=== PATIENT | male | born 1985 | race African-American/Black ===

== ENCOUNTER 2019-08-14 16:35 | Emergency (ER) | payer SELFPAY ==
[2019-08-14] MEDS ORDERED: MECLIZINE HCL 12.5 MG TAB ONE (17:00)
[2019-08-14 17:19] LABS: Urine Blood TRACE (NEG); Urine Glucose NEGATIVE (NEG); Urine Protein NEGATIVE (NEG); Urine pH 6.5 (5.0-7.0)
--- NOTE | 2019-08-14 18:10 | RAD REPORT ---
EXAM DESCRIPTION: CT - Stone Protocol - 08/14/2019 5:59 pm CLINICAL HISTORY: Flank pain. KIDNEY STONES COMPARISON: <Comparisons> TECHNIQUE: Axial images were obtained without oral or IV contrast. Lack of contrast limits solid org an and vascular assessment. The [id number] spans the entirety of the system partially obscuring uppermost abdomen and lung bases. Coronal reformatted images were obtained and reviewed. All CT scans are performed using dose optimization technique as appropriate and may include automated exposure control or mA/KV adjustment according to patient size. FINDINGS: The lower lung carrizales are clear. Cholelithiasis. Imaged portions of the liver and spleen show no suspicious findings on non-contrast imaging. The panc reas and adrenal glands are normal. No pathologic lymphadenopathy in the abdomen or pelvis. No urinary tract stones or obstructive uropathy. No bowel obstruction, free air, free fluid or abscess. Normal appendix noted. No significant bony abnormality. IMPRESSION: No urinary tract stones or obstructive uropathy. Cholelithiasis.
--- NOTE | 2019-08-14 18:33 | EDPHYS ---
Physician Documentation [facility] Name: Dimas Valera Age: 34 yrs Sex: Male : 1985 Arrival Date: 08/14/2019 Time: 16:38 Bed 14 Private MD: ED Physician Omar Duran HPI: 08/14 17:13 This 34 yrs old Male presents to ER via EMS with complaints of Dizziness. snw 17:14 The patient presents with lightheadedness, sense of spinning. Onset: The snw symptoms/episode began/occurred suddenly, just prior to arrival. Context: occurred while the patient was standing. Modifying factors: The symptoms are alleviated by nothing. Associated signs and symptoms: Pertinent positives: nausea, vomiting. Severity of symptoms: At their worst the symptoms were moderate in the emergency department the symptoms have resolved. Patient's baseline: Neuro: alert and fully oriented, The patient has a previous history of deafness. The patient has not experienced similar symptoms in the past. It is unknown whether or not the patient has recently seen a physician. Historical: - Allergies: 16:43 No Known Allergies; jl7 - Home Meds: 16:43 None [Active]; jl7 - PMHx: 16:43 deaf; jl7 - PSHx: 16:43 None; jl7 - Immunization history:: Adult Immunizations unknown. - Social history:: Smoking status: unknown. - Ebola Screening: : No symptoms or risks identified at this time. ROS: 17:10 Constitutional: Negative for fever, chills, and weight loss, Eyes: Negative for injury, snw pain, redness, and discharge, ENT: Negative for injury, pain, and discharge, + deafness Neck: Negative for injury, pain, and swelling, Cardiovascular: Negative for chest pain, palpitations, and edema, Respiratory: Negative for shortness of breath, cough, wheezing, and pleuritic chest pain, Abdomen/GI: Negative for abdominal pain, diarrhea, and constipation, Positive for nausea, and vomited x 1 Back: Negative for injury and pain, : Negative for injury, bleeding, discharge, and swelling, MS/Extremity: Negative for injury and deformity, Skin: Negative for injury, rash, and discoloration. 17:10 Neuro: Positive for dizziness. Exam: 17:10 Constitutional: This is a well developed, well nourished patient who is awake, alert, snw and in no acute distress. Head/Face: Normocephalic, atraumatic. Eyes: Pupils equal round and reactive to light, extra-ocular motions intact. Lids and lashes normal. Conjunctiva and sclera are non-icteric and not injected. Cornea within normal limits. Periorbital areas with no swelling, redness, or edema. ENT: Nares patent. No nasal discharge, no septal abnormalities noted. Tympanic membranes are normal and external auditory canals are clear. Oropharynx with no redness, swelling, or masses, exudates, or evidence of obstruction, uvula midline. Mucous membranes moist. Neck: Trachea midline, no thyromegaly or masses palpated, and no cervical lymphadenopathy. Supple, full range of motion without nuchal rigidity, or vertebral point tenderness. No Meningismus. Chest/axilla: Normal chest wall appearance and motion. Nontender with no deformity. No lesions are appreciated. Cardiovascular: Regular rate and rhythm with a normal S1 and S2. No gallops, murmurs, or rubs. Normal PMI, no JVD. No pulse deficits. Respiratory: Lungs have equal breath sounds bilaterally, clear to auscultation and percussion. No rales, rhonchi or wheezes noted. No increased work of breathing, no retractions or nasal flaring. Abdomen/GI: Soft, non-tender, with normal bowel sounds. No distension or tympany. No guarding or rebound. No evidence of tenderness throughout. Back: No spinal tenderness. No costovertebral tenderness. Full range of motion. Skin: Warm, dry with normal turgor. Normal color with no rashes, no lesions, and no evidence of cellulitis. MS/ Extremity: Pulses equal, no cyanosis. Neurovascular intact. Full, normal range of motion. Neuro: Awake and alert, GCS 15, oriented to person, place, time, and situation. Cranial nerves II-XII grossly intact. Motor strength 5/5 in all extremities. Sensory grossly intact. Cerebellar exam normal. Normal gait. Psych: Awake, alert, with orientation to person, place and time. Behavior, mood, and affect are within normal limits. Vital Signs: 16:43 BP 130 / 93; Pulse 74; Resp 16 S; Temp 98.2(O); Pulse Ox 100% on R/A; Pain 0/10; jl7 17:39 BP 131 / 94 Supine; Pulse 61; Resp 16 S; Pulse Ox 100% on R/A; Pain 3/10; jl7 17:41 BP 144 / 104 Standing; Pulse 85; jl7 MDM: 16:43 Patient medically screened. snw 18:33 Data reviewed: vital signs, nurses notes. Data interpreted: Pulse oximetry: on room air snw is 100 %. Interpretation: normal. Counseling: I had a detailed discussion with the patient and/or guardian regarding: the historical points, exam findings, and any diagnostic results supporting the discharge/admit diagnosis, the presence of at least one elevated blood pressure reading (>120/80) during this emergency department visit, lab results, radiology results, the need for outpatient follow up, to return to the emergency department if symptoms worsen or persist or if there are any questions or concerns that arise at home. Special discussion: I have referred the patient to see his PCP for further evaluation of high blood pressure. Based on the history and exam findings, there is no indication for further emergent testing or inpatient evaluation. I discussed with the patient/guardian the need to see the ENT specialist for further evaluation of the symptoms. I discussed with the patient/guardian the need to see the primary care provider for further evaluation of the symptoms. 08/14 17:14 Order name: Urine Dipstick--Ancillary (enter results); Complete Time: 17:20 bd 08/14 17:43 Order name: CT Stone Protocol; Complete Time: 18:25 snw 08/14 16:49 Order name: Urine Dipstick-Ancillary (obtain specimen); Complete Time: 17:09 snw 08/14 16:49 Order name: EKG; Complete Time: 16:50 snw 08/14 16:49 Order name: EKG - Nurse/Tech; Complete Time: 17:09 snw 08/14 17:34 Order name: Orthostatics; Complete Time: 17:50 jl7 Administered Medications: 17:09 Drug: Meclizine 50 mg Route: PO; 7 17:34 Follow up: Response: No adverse reaction; Marked relief of symptoms jl7 Disposition: 08/14/19 18:33 Discharged to Home. Impression: Essential (primary) hypertension, Benign positional paroxysmal vertigo. - Condition is Stable. - Discharge Instructions: Benign Positional Vertigo, Hypertension, How to Take Your Blood Pressure, Fcoz-ly-Cakt, Amish Maneuver Self-Care, DASH Eating Plan, Rehydration, Adult, Managing Your Hypertension. - Prescriptions for promethazine 25 mg Oral Tablet - take 1 tablet by ORAL route every 6 hours As needed; 20 tablet. orphenadrine citrate 100 mg Oral Tablet Sustained Release - take 1 tablet by ORAL route 2 times per day As needed; 20 tablet. - Medication Reconciliation Form, Thank You Letter, Antibiotic Education, Prescription Opioid Use form. - Follow up: Private Physician; When: 1 week; Reason: Recheck today's complaints, Continuance of care, Re-evaluation by your physician. Follow up: Emergency Department; When: As needed; Reason: Worsening of condition. Addendum: 08/16/2019 07:44 Co-signature as Attending Physician, Omar Duran MD I agree with the assessment and k dr plan of care. Signatures: Dispatcher [employer] EDOmar Sullivan MD MD [facility] Cristina Post, TABLE WORKER PACKAGER-C TABLE WORKER PACKAGER-Csnw Katy Jernigan RN RN jl7 Corrections: (The following items were deleted from the chart) 08/14 19:01 18:33 08/14/2019 18:33 Discharged to Home. Impression: Essential (primary) jl7 hypertension; Benign positional paroxysmal vertigo. Condition is Stable. Discharge Instructions: Benign Positional Vertigo, Hypertension, How to Take Your Blood Pressure, [id number], Amish Maneuver Self-Care, DASH Eating Plan, Rehydration, Adult, Managing Your Hypertension. Prescriptions for promethazine 25 mg Oral Tablet - take 1 tablet by ORAL route every 6 hours As needed; 20 tablet. and Forms are Medication Reconciliation Form, Thank You Letter, Antibiotic Education, Prescription Opioid Use. Follow up: Private Physician; When: 1 week; Reason: Recheck today's complaints, Continuance of care, Re-evaluation by your physician. Follow up: Emergency Department; When: As needed; Reason: Worsening of condition. snw
--- NOTE | 2019-08-14 18:33 | ER ---
Nurse's Notes [facility] Name: Dimas Valera Age: 34 yrs Sex: Male : 1985 Arrival Date: 08/14/2019 Time: 16:38 Bed 14 Private MD: Diagnosis: Essential (primary) hypertension;Benign positional paroxysmal vertigo Presentation: 08/14 16:39 Presenting complaint: EMS states: Pt at home and stood up, felt palpitations and jl7 dizziness. Pt c/o nausea on arrival, nausea and palpitations resolved, pt reports intermittent dizziness on standing. Pt is deaf but can read lips pretty well. Transition of care: patient was not received from another setting of care. Onset of symptoms was August 14, 2019. Risk Assessment: Do you want to hurt yourself or someone else? Patient reports no desire to harm self or others. Initial Sepsis Screen: Does the patient meet any 2 criteria? No. Patient's initial sepsis screen is negative. Does the patient have a suspected source of infection? No. Patient's initial sepsis screen is negative. Care prior to arrival: IV initiated. 20 GA, in the right antecubital area. 16:39 Method Of Arrival: EMS: [facility] jl7 16:39 Acuity: BEBO 3 jl7 Triage Assessment: 16:43 General: Appears in no apparent distress. uncomfortable, Behavior is calm, cooperative, jl7 appropriate for age. Pain: Denies pain. Neuro: Level of Consciousness is awake, alert, obeys commands, Oriented to person, place, time, situation, Moves all extremities. Full function Gait is steady, Facial symmetry appears normal. Cardiovascular: Patient's skin is warm and dry. Respiratory: Airway is patent Respiratory effort is even, unlabored, Respiratory pattern is regular, symmetrical. Derm: Skin is dry, Skin is normal, Skin temperature is warm. Historical: - Allergies: 16:43 No Known Allergies; jl7 - Home Meds: 16:43 None [Active]; jl7 - PMHx: 16:43 deaf; jl7 - PSHx: 16:43 None; jl7 - Immunization history:: Adult Immunizations unknown. - Social history:: Smoking status: unknown. - Ebola Screening: : No symptoms or risks identified at this time. Screenin:08 Abuse screen: Denies threats or abuse. Denies injuries from another. Nutritional jl7 screening: No deficits noted. Tuberculosis screening: No symptoms or risk factors identified. Fall Risk IV access (20 points). Total Crook Fall Scale indicates No Risk (0-24 pts). Assessment: 17:08 General: See triage assessment. jl7 17:34 Reassessment: Pt reports marked relief of symptoms, ERP notified. VO for orthostatics. jl7 17:45 Reassessment: Pt has had to urgently urinate 3 times since he has been here, reports jl7 intermittent throbbing in the left flank since yesterday, ERP notified, CT scan ordered. Vital Signs: 16:43 BP 130 / 93; Pulse 74; Resp 16 S; Temp 98.2(O); Pulse Ox 100% on R/A; Pain 0/10; jl7 17:39 BP 131 / 94 Supine; Pulse 61; Resp 16 S; Pulse Ox 100% on R/A; Pain 3/10; jl7 17:41 BP 144 / 104 Standing; Pulse 85; jl7 ED Course: 16:38 Patient arrived in ED. jl7 16:42 Triage completed. jl7 16:43 Cristina Post FNP-C [facility]. snw 16:43 Omar Duran MD is Attending Physician. snw 16:43 Arm band placed on right wrist. jl7 16:53 Katy Jernigan, RN is Primary Nurse. jl7 17:08 Patient has correct armband on for positive identification. Bed in low position. Call jl7 light in reach. Side rails up X 1. surveillance system monitor on. Pulse ox on. NIBP on. 17:08 Urine collected:. jl7 17:21 EKG done, by medical office technologist. reviewed by Cristina HAGER. sm3 17:59 CT Stone Protocol In Process Unspecified. EDMS 19:00 No provider procedures requiring assistance completed. IV discontinued, intact, jl7 bleeding controlled, No redness/swelling at site. Pressure dressing applied. Administered Medications: 17:09 Drug: Meclizine 50 mg Route: PO; jl7 17:34 Follow up: Response: No adverse reaction; Marked relief of symptoms jl7 Outcome: 18:33 Discharge ordered by . snw 19:00 Discharged to home ambulatory. jl7 19:00 Condition: stable 19:00 Discharge instructions given to patient, family, Instructed on discharge instructions, follow up and referral plans. medication usage, Demonstrated understanding of instructions, follow-up care, medications, Prescriptions given X 2. 19:01 Patient left the ED. jl7 Signatures: Dispatcher [employer] EDCristina Gaviria, TANNING WHEEL FILLER-C TANNING WHEEL FILLER-Jose Guadalupew Katy Jernigan RN RN jl7 Jackeline Woo [facility]
[2019-08-14 19:07] VITALS: TEMP 98.2; O2SAT 100
[2019-08-14 19:09] VITALS: BP 144/104
--- NOTE | 2019-08-15 05:15 | EKG ---
Test Date: 2019-08-14 Test Time: 16:59:36 Proof Press Operator: BLAISE MEASUREMENT RESULTS: Intervals: Rate: 69 LA: 140 QRSD: 78 QT: 368 QTc: 394 [place]: P: 75 LA: 140 QRS: 103 T: 28 INTERPRETIVE STATEMENTS: Normal sinus rhythm Rightward axis Nonspecific ST abnormality Abnormal ECG No previous ECG available for comparison Electronically Signed On 08-15-19 05:14:00 CDT by Chencho Wild
== END 2019-08-14 19:01 | disposition home or self-care (01) ==
LOC: ER 16:35
DX: I10 Essential (primary) hypertension (principal); H81.10 Benign paroxysmal vertigo, unspecified ear
CPT/HCPCS: 74176; 76377; 81003; 93005; 99284; J8597

== ENCOUNTER 2021-05-21 15:57 | Emergency (ER) | payer OTHER ==
--- NOTE | 2021-05-21 18:48 | EDPHYS ---
Physician Documentation [facility] Name: Diams Valera Age: 36 yrs Sex: Male : 1985 Arrival Date: 05/21/2021 Time: 16:05 Bed 16 Private MD: ED Physician Erinn Arora HPI: 05/21 18:50 This 36 yrs old Black Male presents to ER via Ambulatory with complaints of Blood kb Pressure Problem. 18:50 Severity of symptoms: At their worst the symptoms were moderate in the emergency kb department the symptoms are unchanged. The patient has not experienced similar symptoms in the past. The patient has not recently seen a physician. 18:50 Onset: The symptoms/episode began/occurred at an unknown time. kb 18:51 Patient reports he has had problems with a dry mouth and tongue for quite some time. kb Came in to get that checked out as well as blood pressure and blood sugar. States hypertension and diabetes runs in the family who is concerned that he was developing those. Also reports grinding his teeth at night and wants to know why that occurs.. Historical: - Allergies: 17:23 No Known Allergies; kg - Home Meds: 17:23 None [Active]; kg - PMHx: 17:23 Deaf; Bipolar disorder; kg - PSHx: 17:23 None; kg - Immunization history:: Adult Immunizations up to date, Client reports having NOT received the Covid vaccine. Adult Immunizations not up to date, Client reports receiving the 2nd dose of the Covid vaccine, Date received: February 2021. - Social history:: Smoking status: Patient reports the use of cigarette tobacco products, smokes one-half pack cigarettes per day, Patient uses alcohol, occasionally. ROS: 18:49 Constitutional: Negative for fever, chills, and weight loss. kb 18:49 ENT: Positive for dry mouth. 18:49 All other systems are negative. Exam: 18:50 Constitutional: This is a well developed, well nourished patient who is awake, alert, kb and in no acute distress. Head/Face: Normocephalic, atraumatic. ENT: Moist Mucous membranes Respiratory: Respirations even and unlabored. No increased work of breathing, no retractions or nasal flaring. Skin: Warm, dry with normal turgor. Normal color. MS/ Extremity: Pulses equal, no cyanosis. Neurovascular intact. Full, normal range of motion. Neuro: Awake and alert, GCS 15, oriented to person, place, time, and situation. Moves all extremities. Normal gait. Psych: Awake, alert, with orientation to person, place and time. Behavior, mood, and affect are within normal limits. Vital Signs: 17:17 BP 123 / 87; Pulse 71; Resp 16; Temp 98.0; Pulse Ox 98% on R/A; Weight 90.72 kg (R); kg Height 6 ft. 2 in. (187.96 cm); Pain 0/10; 18:30 BP 120 / 84; Pulse 74; Resp 16; Pulse Ox 100% ; zb 17:17 Body Mass Index 25.68 (90.72 kg, 187.96 cm) kg MDM: 17:45 Patient medically screened. kb 18:49 Data reviewed: vital signs, nurses notes. Data interpreted: Pulse oximetry: on room air kb is 98 %. Interpretation: normal. Counseling: I had a detailed discussion with the patient and/or guardian regarding: the historical points, exam findings, and any diagnostic results supporting the discharge/admit diagnosis, the need for outpatient follow up, a family practitioner, to return to the emergency department if symptoms worsen or persist or if there are any questions or concerns that arise at home. 05/21 18:28 Order name: Glucose, Ancillary Testing; Complete Time: 18:38 [facility] 05/21 18:06 Order name: Blood Glucose Level; Complete Time: 18:20 kb Administered Medications: No medications were administered Disposition Summary: 05/21/21 18:47 Discharge Ordered Location: Home kb Condition: Stable kb Diagnosis - Dry mouth, unspecified kb Followup: kb - With: Emergency Department - When: As needed - Reason: Worsening of condition Followup: kb - With: Private Physician - When: 2 - 3 days - Reason: Recheck today's complaints, Continuance of care, Re-evaluation by your physician Discharge Instructions: - Discharge Summary Sheet kb Forms: - Medication Reconciliation Form kb - Thank You Letter kb - Antibiotic Education kb - Prescription Opioid Use kb Addendum: 05/23/2021 17:08 Co-signature as Attending Physician, Erinn Arora MD. m a2 Signatures: Dispatcher [employer] EDNJ Baylee Kate FNP-C FNP-Ckb Alzahri, Mohammad, MD MD ma2 Leonor Sandhu, RN RN kg
--- NOTE | 2021-05-21 18:48 | ER ---
Nurse's Notes [facility] Name: Dimas Valera Age: 36 yrs Sex: Male : 1985 Arrival Date: 05/21/2021 Time: 16:05 Bed 16 Private MD: Diagnosis: Dry mouth, unspecified Presentation: 05/21 17:17 Chief complaint: Patient states: I just have a dry tongue and my moms sister said I kg needed to come get checked out to see if I have high blood pressure. Also I have been clenching my teeth and grinding my teeth at night. Chief complaint:. Coronavirus screen: Client denies travel out of the [place] in the last 14 days. At this time, unable to obtain information related to travel outside the [place] At this time, the client does not indicate any symptoms associated with coronavirus-19. Ebola Screen: Patient negative for fever greater than or equal to 101.5 degrees Fahrenheit, and additional compatible Ebola Virus Disease symptoms Patient denies exposure to infectious person. Patient denies travel to an Ebola-affected area in the 21 days before illness onset. Initial Sepsis Screen: Does the patient meet any 2 criteria? No. Patient's initial sepsis screen is negative. Does the patient have a suspected source of infection? No. Patient's initial sepsis screen is negative. Risk Assessment: Do you want to hurt yourself or someone else? Patient reports no desire to harm self or others. Onset of symptoms was May 17, 2021. 17:17 Method Of Arrival: Ambulatory kg 17:17 Acuity: BEBO 5 kg Triage Assessment: 17:23 General: Appears in no apparent distress. Behavior is calm, cooperative, appropriate kg for age, quiet. Pain: Denies pain. Historical: - Allergies: 17:23 No Known Allergies; kg - Home Meds: 17:23 None [Active]; kg - PMHx: 17:23 Deaf; Bipolar disorder; kg - PSHx: 17:23 None; kg - Immunization history:: Adult Immunizations up to date, Client reports having NOT received the Covid vaccine. Adult Immunizations not up to date, Client reports receiving the 2nd dose of the Covid vaccine, Date received: February 2021. - Social history:: Smoking status: Patient reports the use of cigarette tobacco products, smokes one-half pack cigarettes per day, Patient uses alcohol, occasionally. Screenin:26 Abuse screen: Denies threats or abuse. Denies injuries from another. Nutritional kg screening: No deficits noted. Tuberculosis screening: No symptoms or risk factors identified. Fall Risk None identified. No fall in past 12 months (0 pts). No secondary diagnosis (0 pts). No IV (0 pts). Ambulatory Aid- None/Bed Rest/Nurse Assist (0 pts). Gait- Normal/Bed Rest/Wheelchair (0 pts) Mental Status- Oriented to own ability (0 pts). Total Crook Fall Scale indicates No Risk (0-24 pts). Assessment: 18:20 General: Appears in no apparent distress. Pain: Denies pain. Neuro: Level of zb Consciousness is awake, alert, obeys commands. Cardiovascular: Capillary refill < 3 seconds in bilateral fingers. Respiratory: Airway is patent Respiratory effort is even, unlabored, Respiratory pattern is regular, symmetrical. GI: No deficits noted. EENT: Oral mucosa is dry. Derm: Skin is normal. Musculoskeletal: Range of motion:. 18:21 Reassessment: BGL 100. notified ecp. zb Vital Signs: 17:17 BP 123 / 87; Pulse 71; Resp 16; Temp 98.0; Pulse Ox 98% on R/A; Weight 90.72 kg (R); kg Height 6 ft. 2 in. (187.96 cm); Pain 0/10; 18:30 BP 120 / 84; Pulse 74; Resp 16; Pulse Ox 100% ; zb 17:17 Body Mass Index 25.68 (90.72 kg, 187.96 cm) kg ED Course: 16:05 Patient arrived in ED. am2 17:23 Triage completed. kg 17:23 Arm band placed on right wrist. kg 17:26 Patient has correct armband on for positive identification. kg 17:45 Baylee Kate FNP-C [facility]. kb 17:45 Erinn Arora MD is Attending Physician. kb 18:12 Karly Tapia, TAJ is Primary Nurse. zb 19:10 No provider procedures requiring assistance completed. Patient did not have IV access zb during this emergency room visit. Administered Medications: No medications were administered Outcome: 18:47 Discharge ordered by . kb 19:10 Discharged to home ambulatory, with family. zb 19:10 Condition: stable 19:10 Discharge instructions given to patient, family, Instructed on discharge instructions, follow up and referral plans. Demonstrated understanding of instructions, follow-up care. 19:11 Patient left the ED. zb Signatures: Baylee Kate, ELLENC AUTOMATIC TYPEWRITER INSPECTOR-Sapna Rivera Zipporah RN RN Leonor Quijano RN RN kg
[2021-05-21 19:15] VITALS: TEMP 98
[2021-05-21 19:17] VITALS: BP 120/84; O2SAT 100
== END 2021-05-21 19:11 | disposition home or self-care (01) ==
LOC: ER 15:57
DX: R68.2 Dry mouth, unspecified (principal); F17.210 Nicotine dependence, cigarettes, uncomplicated
CPT/HCPCS: 82947; 99281

== ENCOUNTER 2021-08-23 13:10 | Emergency (ER) | payer OTHER ==
[2021-08-23] MEDS ORDERED: ACETAMINOPHEN 500 MG TAB ONE (14:16)
[2021-08-23 14:36] LABS: Albumin 3.4 g/dL (3.4-5.0); Bilirubin Direct 0.2 mg/dL (0-0.2); Bilirubin Total 0.7 mg/dL (0.2-1.0); Potassium 3.7 mmol/L (3.5-5.1); Protein, Total 7.5 g/dL (6.4-8.2)
[2021-08-23] MEDS ORDERED: NA CHLORIDE 0.9% 1,000 ML ONE (14:42)
[2021-08-23] MEDS ORDERED: ONDANSETRON 4 MG/2 ML VIAL ONE (14:42)
[2021-08-23 14:44] LABS: Absolute Lymphocytes (CBC) 0.5 K/uL (0.7-4.9); Basophils % 0.3 % (0-1.3); Lymphocytes % 20.3 % (15.3-44.8); MPV 9.3 fL (7.6-11.3); RBC Red Blood Cell Count 5.52 M/uL (4.33-5.43)
[2021-08-23 16:08] LABS: SARS-COV-2 RT PCR NEGATIVE (NEGATIVE)
[2021-08-23 16:43] LABS: Urine Blood Negative (Negative); Urine Glucose Negative (Negative); Urine Protein Trace (Negative); Urine Specific Gravity 1.015 (1.005-1.030)
--- NOTE | 2021-08-23 17:00 | RAD REPORT ---
EXAM DESCRIPTION: Zenaida Single View08/23/2021 4:47 pm CLINICAL HISTORY: Fever COMPARISON: none FINDINGS: The lungs appear clear of acute infiltrate. The heart is normal size IMPRESSION: No acute abnormalities displayed
--- NOTE | 2021-08-23 17:00 | RAD REPORT ---
EXAM DESCRIPTION: CT - Abdomen Pelvis Wo Contrast - 08/23/2021 4:50 pm CLINICAL HISTORY: Abdominal pain COMPARISON: 2019 TECHNIQUE: Computed axial tomography of the abdomen and pelvis was obtained. IV and oral contrast we re not requested. All CT scans are performed using dose optimization technique as appropriate and may include automated exposure control or mA/KV adjustment according to patient size. FINDINGS: The evaluation of solid organs, vessels and bowel is limited secondary to the lack of con trast administration. Cholelithiasis. The gallbladder wall does not appear thickened. The liver, spleen, pancreas, adrenals and kidneys appear grossly normal. The appendix is normal. There is no evidence of diverticulitis. A moderate amount stool within the transverse and right colon IMPRESSION: Cholelithiasis without evidence of cholecystitis
[2021-08-23 17:08] LABS: Urine Bacteria <20 /HPF (NONE SEEN); Urine RBC NONE SEEN /HPF (NONE SEEN)
--- NOTE | 2021-08-23 17:14 | EDPHYS ---
Physician Documentation [facility] Name: Dimas Valera Age: 36 yrs Sex: Male : 1985 Arrival Date: 08/23/2021 Time: 13:12 Bed 4 Private MD: ED Physician Erick Martinez HPI: 08/23 14:33 This 36 yrs old Black Male presents to ER via Ambulatory with complaints of Fever, jr8 Abdominal Pain, Vomiting. 14:33 The patient reports fever, with an emergency department temperature of 102.7 degrees jr8 Fahrenheit. Onset: The symptoms/episode began/occurred acutely, 2 day(s) ago. Modifying factors: there are no obvious modifying factors. Associated signs and symptoms: Pertinent positives: abdominal pain, headache, nausea. Severity of symptoms: At their worst the symptoms were moderate in the emergency department the symptoms are unchanged. The patient has not experienced similar symptoms in the past. The patient has not recently seen a physician. Historical: - Allergies: 13:21 No Known Allergies; aa5 - PMHx: 13:21 Bipolar disorder; Deaf; aa5 - Immunization history:: Client reports receiving the 2nd dose of the Covid vaccine. - Social history:: Smoking status: Patient reports the use of cigarette tobacco products, 3 cigarettes a day . ROS: 14:33 Eyes: Negative for injury, pain, redness, and discharge, ENT: Negative for injury, jr8 pain, and discharge, Neck: Negative for injury, pain, and swelling, Cardiovascular: Negative for chest pain, palpitations, and edema, Respiratory: Negative for shortness of breath, cough, wheezing, and pleuritic chest pain, Back: Negative for injury and pain, MS/Extremity: Negative for injury and deformity, Skin: Negative for injury, rash, and discoloration. 14:33 Constitutional: Positive for body aches, chills, fever. 14:33 Abdomen/GI: Positive for abdominal pain, nausea, Negative for vomiting, diarrhea, constipation, abdominal distension. 14:33 Neuro: Positive for headache. Exam: 14:33 Constitutional: This is a well developed, well nourished patient who is awake, alert, jr8 and in no acute distress. Eyes: Pupils equal round and reactive to light, extra-ocular motions intact. Lids and lashes normal. Conjunctiva and sclera are non-icteric and not injected. Cornea within normal limits. Periorbital areas with no swelling, redness, or edema. ENT: Nares patent. No nasal discharge, no septal abnormalities noted. Tympanic membranes are normal and external auditory canals are clear. Oropharynx with no redness, swelling, or masses, exudates, or evidence of obstruction, uvula midline. Mucous membranes moist. Neck: Trachea midline, no thyromegaly or masses palpated, and no cervical lymphadenopathy. Supple, full range of motion without nuchal rigidity, or vertebral point tenderness. No Meningismus. Respiratory: Lungs have equal breath sounds bilaterally, clear to auscultation and percussion. No rales, rhonchi or wheezes noted. No increased work of breathing, no retractions or nasal flaring. Abdomen/GI: Soft, non-tender, with normal bowel sounds. No distension or tympany. No guarding or rebound. No evidence of tenderness throughout. Back: No spinal tenderness. No costovertebral tenderness. Full range of motion. Skin: Warm, dry with normal turgor. Normal color with no rashes, no lesions, and no evidence of cellulitis. MS/ Extremity: Pulses equal, no cyanosis. Neurovascular intact. Full, normal range of motion. Neuro: Awake and alert, GCS 15, oriented to person, place, time, and situation. Cranial nerves II-XII grossly intact. Motor strength 5/5 in all extremities. Sensory grossly intact. 14:33 Cardiovascular: Rate: tachycardic, Rhythm: regular, Pulses: Pulses are 2+ in right radial artery and left radial artery. Heart sounds: normal, normal S1and S2, no S3 or S4, no murmur, no rub, no gallop, Edema: is not appreciated. Vital Signs: 13:22 BP 138 / 84; Pulse 116; Resp 20 S; Temp 102.7(TE); Pulse Ox 100% on R/A; Height 6 ft. 2 aa5 in. (187.96 cm) (R); 13:29 Weight 90.67 kg (M); aa5 14:51 BP 121 / 76; Pulse 102; Resp 20; Pulse Ox 99% ; jl7 16:00 BP 111 / 75; Pulse 87; Resp 16; Temp 99.1; Pulse Ox 98% ; bp 17:19 BP 116 / 78; Pulse 80; Resp 16; Temp 98.9; Pulse Ox 98% ; bp 13:29 Body Mass Index 25.67 (90.67 kg, 187.96 cm) aa5 MDM: 13:38 Patient medically screened. jr8 17:23 Data reviewed: vital signs, nurses notes, lab test result(s), radiologic studies, CT jr8 scan, plain films. Data interpreted: Pulse oximetry: on room air is 98 %. Interpretation: normal. Counseling: I had a detailed discussion with the patient and/or guardian regarding: the historical points, exam findings, and any diagnostic results supporting the discharge/admit diagnosis, lab results, radiology results, the need for outpatient follow up, a family practitioner, to return to the emergency department if symptoms worsen or persist or if there are any questions or concerns that arise at home. ED course: Physical exam of patient did not reveal any focal neurologic deficit or nuchal rigidity. Patient had no skin rashes or other signs of external bacterial related infections. Lung sounds were clear and abdomen was soft and nontender. No other acute findings on physical exam. Patient remained hemodynamically stable and vital signs normalized after fever was reduced. Explained to patient that his chest x-ray along with his blood work and CAT scan did not reveal any acute findings. Patient also was negative for influenza and Covid. Urine was clean as well. Only abnormality that we did find on his labs were an elevation in his creatinine which I discussed with patient and that he needs to push fluids over the next several days and follow-up with nephrology. If patient were to worsen at any point time to come back for further evaluation. Patient is good with this at this time.. 08/23 13:32 Order name: Basic Metabolic Panel; Complete Time: 14:38 08/23 13:32 Order name: CBC with Diff 08/23 13:32 Order name: Hepatic Function; Complete Time: 14:38 jr8 08/23 13:32 Order name: Lipase; Complete Time: 14:38 08/23 14:06 Order name: Urine Microscopic Only; Complete Time: 17:13 jr08/23 13:32 Order name: IV Saline Lock; Complete Time: 14:02 jr8 08/23 15:12 Order name: COVID-19/FLU A+B; Complete Time: 16:09 EDMS 08/23 16:10 Order name: CT Abd/Pelvis - Without Contrast; Complete Time: 17:07 jr8 08/23 16:10 Order name: XRAY Chest (1 view); Complete Time: 17:07 jr8 08/23 16:43 Order name: Urine Dipstick-Ancillary; Complete Time: 16:47 EDMS 08/23 13:32 Order name: Labs collected and sent; Complete Time: 14:02 jr8 08/23 14:06 Order name: Urine Dipstick-Ancillary (obtain specimen); Complete Time: 16:49 jr8 Administered Medications: 14:00 Drug: Tylenol 1000 mg Route: PO; bp 16:11 Follow up: Response: Temperature is decreased bp 14:10 Drug: NS 0.9% 1000 ml Route: IV; Rate: 1000 ml; Site: right forearm; bp 17:26 Follow up: IV Status: Completed infusion; IV Intake: 1000ml bp 14:10 Drug: Zofran (Ondansetron) 4 mg Route: IVP; Site: right forearm; bp 16:10 Follow up: Response: No adverse reaction bp Disposition: 08/24 08:51 Co-signature as Attending Physician, Erick Martinez MD I agree with the assessment and sp3 plan of care. Disposition Summary: 08/23/21 17:14 Discharge Ordered Location: Home jr8 Problem: new jr8 Symptoms: have improved jr8 Condition: Stable jr8 Diagnosis - Fever, unspecified jr8 - Abnormal results of kidney function studies jr8 Followup: jr8 - With: Jh Jacome, DO - When: 1 week - Reason: Recheck today's complaints, Continuance of care, Re-evaluation by your physician Discharge Instructions: - Discharge Summary Sheet jr8 - Fever, Adult jr8 Forms: - Medication Reconciliation Form jr8 - Thank You Letter jr8 - Antibiotic Education jr8 - Work release form ss - Prescription Opioid Use jr8 Signatures: Dispatcher [employer] EDMS Lizabeth Moss RN RN aa5 Luis Ma PA PA jr8 Dimas Henriquez RN RN bp Erick Martinez MD MD sp3 Corrections: (The following items were deleted from the chart) 08/23 15:12 14:06 COVID-19/FLU A+B/RSV+MOL.LAB.BRZ ordered. EDMS EDMS
--- NOTE | 2021-08-23 17:14 | ER ---
Nurse's Notes [facility] Name: Dimas Valera Age: 36 yrs Sex: Male : 1985 Arrival Date: 08/23/2021 Time: 13:12 Bed 4 Private MD: Diagnosis: Fever, unspecified;Abnormal results of kidney function studies Presentation: 08/23 13:22 Chief complaint: Patient states: "I just moved to a new apartment and I must of twisted aa5 my back because I am hurting". Pt c/o pain to left low back x 2 weeks ago. Pt reports dizziness, headache, chills, and fever up to 104.0*F. (Used roller cleaner). Coronavirus screen: chills, fever. Ebola Screen: No symptoms or risks identified at this time. Initial Sepsis Screen: Does the patient meet any 2 criteria? Temp <36.0*C (96.8*F)) or > 38.3*C (100.9*F). HR > 90 bpm. Yes Does the patient have a suspected source of infection? Yes:. Risk Assessment: Do you want to hurt yourself or someone else? Patient reports no desire to harm self or others. Onset of symptoms was July 2021. 13:22 Acuity: BEBO 3 aa5 13:22 Method Of Arrival: Ambulatory aa5 Triage Assessment: 13:30 General: Appears distressed, uncomfortable, Behavior is calm, cooperative, appropriate bp for age. Pain: Complains of pain in low back area. EENT: No deficits noted. Neuro: No deficits noted. Cardiovascular: No deficits noted. Respiratory: No deficits noted. GI: Abdomen is non-distended. : Reports pain in bilateral flank(s). Derm: No deficits noted. Musculoskeletal: No deficits noted. Historical: - Allergies: 13:21 No Known Allergies; aa5 - PMHx: 13:21 Bipolar disorder; Deaf; aa5 - Immunization history:: Client reports receiving the 2nd dose of the Covid vaccine. - Social history:: Smoking status: Patient reports the use of cigarette tobacco products, 3 cigarettes a day . Screenin:30 Abuse screen: Denies threats or abuse. Denies injuries from another. Nutritional bp screening: No deficits noted. Tuberculosis screening: No symptoms or risk factors identified. Fall Risk None identified. Assessment: 13:30 General: SEE TRIAGE NOTE. bp 15:00 Reassessment: No changes from previously documented assessment. Patient and/or family bp updated on plan of care and expected duration. Pain level reassessed. 17:20 Reassessment: PT D/C HOME AMBULATORY WITH FAMILY, DX WITH ABNORMAL KIDNEY FUNCTION. bp Vital Signs: 13:22 BP 138 / 84; Pulse 116; Resp 20 S; Temp 102.7(TE); Pulse Ox 100% on R/A; Height 6 ft. 2 aa5 in. (187.96 cm) (R); 13:29 Weight 90.67 kg (M); aa5 14:51 BP 121 / 76; Pulse 102; Resp 20; Pulse Ox 99% ; jl7 16:00 BP 111 / 75; Pulse 87; Resp 16; Temp 99.1; Pulse Ox 98% ; bp 17:19 BP 116 / 78; Pulse 80; Resp 16; Temp 98.9; Pulse Ox 98% ; bp 13:29 Body Mass Index 25.67 (90.67 kg, 187.96 cm) aa5 ED Course: 13:12 Patient arrived in ED. am2 13:21 Arm band placed on. aa5 13:24 Triage completed. aa5 13:27 Katy Jernigan, RN is Primary Nurse. jl7 13:30 Patient has correct armband on for positive identification. Bed in low position. Call bp light in reach. Side rails up X2. Adult w/ patient. 13:32 Luis Ma PA is PHCP. jr8 13:32 Erick Martinez MD is Attending Physician. jr8 13:46 Dimas Henriquez, TAJ is Primary Nurse. bp 14:00 Inserted saline lock: 20 gauge in right forearm, using aseptic technique. Blood bp collected. 16:47 XRAY Chest (1 view) In Process Unspecified. EDMS 16:49 CT Abd/Pelvis - Without Contrast In Process Unspecified. EDMS 17:13 Jh Jacome DO is Referral Physician. jr8 17:20 No provider procedures requiring assistance completed. IV discontinued, intact, bp bleeding controlled, No redness/swelling at site. Pressure dressing applied. Administered Medications: 14:00 Drug: Tylenol 1000 mg Route: PO; bp 16:11 Follow up: Response: Temperature is decreased bp 14:10 Drug: NS 0.9% 1000 ml Route: IV; Rate: 1000 ml; Site: right forearm; bp 17:26 Follow up: IV Status: Completed infusion; IV Intake: 1000ml bp 14:10 Drug: Zofran (Ondansetron) 4 mg Route: IVP; Site: right forearm; bp 16:10 Follow up: Response: No adverse reaction bp Intake: 17:26 IV: 1000ml; Total: 1000ml. bp Outcome: 17:14 Discharge ordered by MD. lea 17:20 Discharged to home ambulatory, with family. bp 17:20 Condition: stable 17:20 Discharge instructions given to patient, Instructed on discharge instructions, follow up and referral plans. medication usage, Demonstrated understanding of instructions, follow-up care, medications, Prescriptions given X 1. 17:35 Patient left the ED. bp Signatures: Dispatcher [employer] EDMS Lizabeth Moss RN RN aa5 Luis Ma PA PA jr8 Katy Jernigan RN RN jl7 Sapna Palma Brian, RN RN bp Corrections: (The following items were deleted from the chart) 13:26 13:22 Chief complaint: Patient states: "I just moved to a new apartment and I must of aa5 twisted my back because I am hurting". Pt c/o pain to left low back x 2 weeks ago. Pt reports dizziness, headache, chills, and fever up to 104.0*F. aa5 13:30 13:22 Initial Sepsis Screen: Does the patient meet any 2 criteria? Temp <36.0*C aa5 (96.8*F)) or > 38.3*C (100.9*F). Does the patient have a suspected source of infection? Yes: aa5 16:10 16:00 BP 111 / 75; Pulse 87bpm; Resp 16bpm; Pulse Ox 98%; bp bp
[2021-08-23 18:27] VITALS: O2SAT 98
[2021-08-23 18:28] VITALS: BP 116/78; TEMP 98.9
[2021-08-23 18:58] LABS: Platelet Estimate DECR; White Blood Cell Scan OK (OK)
[2021-08-23 18:59] LABS: Anisocytosis 1+; Blood Morphology Comment NOT SEEN (NOT SEEN); Poikilocytosis 1+
== END 2021-08-23 17:35 | disposition home or self-care (01) ==
LOC: ER 13:10
DX: R94.4 Abnormal results of kidney function studies (principal); F17.210 Nicotine dependence, cigarettes, uncomplicated
CPT/HCPCS: 96361; 85025; 80048; 36415; 80076; 83690; 0240U; 74176; 71045; 96374; 99284; J7030; J2405; 81003; 81015

== ENCOUNTER 2021-10-27 13:42 | Emergency (ER) | payer OTHER ==
[2021-10-27] MEDS ORDERED: KETOROLAC 30 MG/ML INJ ONE (19:16)
[2021-10-27] MEDS ORDERED: HYDROCODONE/APAP 7.5/325 MG TAB ONE (19:16)
--- NOTE | 2021-10-27 20:32 | RAD REPORT ---
EXAM DESCRIPTION: RAD - Hip Left 2 View - 10/27/2021 7:44 pm CLINICAL HISTORY: PAIN COMPARISON: No comparisons FINDINGS: Mild arthritic changes affect the left hip. No fracture, dislocation or AVN.
--- NOTE | 2021-10-27 20:43 | EDPHYS ---
Physician Documentation [facility] Name: Dimas Valera Age: 36 yrs Sex: Male : 1985 Arrival Date: 10/27/2021 Time: 13:46 Bed 11 Private MD: ED Physician Omar Duran HPI: 10/27 20:39 This 36 yrs old Black Male presents to ER via Wheelchair with complaints of Hip Pain, kb Back Pain, Buttock Pain. 20:39 The patient or guardian reports pain. that occurred at home, sustained from lifting or kb pulling, There is no obvious deformity, The patient is able to self ambulate. The patient is able to bear their full body weight. The complaints affect the left hip. Onset: The symptoms/episode began/occurred 2 month(s) ago, and became persistent yesterday. Modifying factors: The symptoms are alleviated by nothing, the symptoms are aggravated by any movement. Associated signs and symptoms: Loss of consciousness: the patient experienced no loss of consciousness, Pertinent positives: None. Severity of symptoms: At their worst the symptoms were moderate, in the emergency department the symptoms are unchanged. The patient has not experienced similar symptoms in the past. The patient has been recently seen by a physician:. Pt reports pain to left buttock that radiates down leg. Reports this has been going on for a couple of months, but has gotten worse. Reports it also feels like something is loose in his left hip. Historical: - Allergies: 14:32 No Known Allergies; vg1 - Home Meds: 14:32 Etodolac Oral [Active]; vg1 - PMHx: 14:32 Bipolar disorder; Deaf; vg1 - Immunization history:: Client reports receiving the 2nd dose of the Covid vaccine. - Social history:: Smoking status: Patient denies any tobacco usage or history of. ROS: 20:40 Constitutional: Negative for fever, chills, and weight loss. kb 20:40 Back: Positive for pain at rest, pain with movement, radiated pain, of the left low back. 20:40 MS/extremity: Positive for pain, of the left hip. 20:40 All other systems are negative. Exam: 20:40 Constitutional: This is a well developed, well nourished patient who is awake, alert, kb and in no acute distress. Head/Face: Normocephalic, atraumatic. ENT: Moist Mucous membranes Respiratory: Respirations even and unlabored. No increased work of breathing. Talking in full sentences Back: No spinal tenderness. No costovertebral tenderness. Full range of motion. Skin: Warm, dry with normal turgor. Normal color. MS/ Extremity: Pulses equal, no cyanosis. Neurovascular intact. Full, normal range of motion. Neuro: Awake and alert, GCS 15, oriented to person, place, time, and situation. Moves all extremities. Normal gait. Psych: Awake, alert, with orientation to person, place and time. Behavior, mood, and affect are within normal limits. 20:40 Musculoskeletal/extremity: Extremities: grossly normal except: noted in the left gluteus adrian: tenderness, ROM: intact in all extremities, Circulation is intact in all extremities. Sensation intact. Weight bearing: able to fully bear weight. Vital Signs: 14:28 BP 125 / 89; Pulse 85; Resp 16; Temp 98.4; Pulse Ox 100% ; Weight 90.72 kg; Height 6 vg1 ft. 1 in. (185.42 cm); Pain 10/10; 14:28 Body Mass Index 26.39 (90.72 kg, 185.42 cm) vg1 MDM: 18:38 Patient medically screened. kb 20:39 Data reviewed: vital signs, nurses notes. Data interpreted: Pulse oximetry: on room air kb is 100 %. Interpretation: normal. Counseling: I had a detailed discussion with the patient and/or guardian regarding: the historical points, exam findings, and any diagnostic results supporting the discharge/admit diagnosis, radiology results, the need for outpatient follow up, a family practitioner, to return to the emergency department if symptoms worsen or persist or if there are any questions or concerns that arise at home. 10/27 18:49 Order name: Hip Left 2 View XRAY; Complete Time: 20:39 kb Administered Medications: 19:24 Drug: [place] (HYDROcodone-acetaminophen) (7.5 mg-325 mg) 1 tabs Route: PO; kb 19:25 Drug: Ketorolac 30 mg Route: IM; Site: right deltoid; kb Disposition: 10/28 08:12 Co-signature as Attending Physician, Omar Duran MD I agree with the assessment and kdr plan of care. Disposition Summary: 10/27/21 20:42 Discharge Ordered Location: Home kb Condition: Stable kb Diagnosis - Sciatica, left side kb Followup: kb - With: Emergency Department - When: As needed - Reason: Worsening of condition Followup: kb - With: Private Physician - When: 2 - 3 days - Reason: Recheck today's complaints, Continuance of care, Re-evaluation by your physician Discharge Instructions: - Discharge Summary Sheet kb - Sciatica, [id number] kb - Back Exercises, [id number] kb Forms: - Work release form kb - Medication Reconciliation Form kb - Thank You Letter kb - Antibiotic Education kb - Prescription Opioid Use kb Prescriptions: - Prednisone 20 mg Oral Tablet - take 1 tablet by ORAL route once daily for 5 days; 5 tablet; Refills: 0, kb Product Selection Permitted - Cyclobenzaprine 10 mg Oral Tablet - take 1 tablet by ORAL route every 8 hours As needed; 21 tablet; Refills: 0, kb Product Selection Permitted Signatures: Dispatcher [employer] Baylee Mccoy, [employer]ING [employer] SUPERVISOR-C [employer]ING [employer]ANT SUPERVISOR-Omar Erazo MD MD kdr Garcia, Victoria RN RN vg1
--- NOTE | 2021-10-27 20:43 | ER ---
Nurse's Notes [facility] Name: Dimas Valera Age: 36 yrs Sex: Male : 1985 Arrival Date: 10/27/2021 Time: 13:46 Bed 11 Private MD: Diagnosis: Sciatica, left side Presentation: 10/27 14:28 Chief complaint: Patient states: Pt is hearing impaired. About 3-4 months ago pt was vg1 moving and was lifting heavy items and states felt like had pulled muscle but ignored it. Stated working recently and has also been lifting heavy items and now left side of back all the way down to the left leg has a 'burning sensation. Coronavirus screen: Vaccine status: Patient reports receiving the 2nd dose of the covid vaccine. Client denies travel out of the [place] in the last 14 days. Ebola Screen: Patient negative for fever greater than or equal to 101.5 degrees Fahrenheit, and additional compatible Ebola Virus Disease symptoms. Initial Sepsis Screen: Does the patient meet any 2 criteria? No. Patient's initial sepsis screen is negative. Does the patient have a suspected source of infection? No. Patient's initial sepsis screen is negative. Risk Assessment: Do you want to hurt yourself or someone else? Patient reports no desire to harm self or others. Onset of symptoms was June 2021. 14:28 Method Of Arrival: Wheelchair vg1 14:28 Acuity: BEBO 4 vg1 Triage Assessment: 14:32 General: Appears in no apparent distress. uncomfortable, Behavior is calm, cooperative. vg1 Pain: Complains of pain in back, left buttock, left leg Pain currently is 10 out of 10 on a pain scale. Quality of pain is described as burning. Musculoskeletal: Circulation, motion, and sensation intact. Historical: - Allergies: 14:32 No Known Allergies; vg1 - Home Meds: 14:32 Etodolac Oral [Active]; vg1 - PMHx: 14:32 Bipolar disorder; Deaf; vg1 - Immunization history:: Client reports receiving the 2nd dose of the Covid vaccine. - Social history:: Smoking status: Patient denies any tobacco usage or history of. Vital Signs: 14:28 BP 125 / 89; Pulse 85; Resp 16; Temp 98.4; Pulse Ox 100% ; Weight 90.72 kg; Height 6 vg1 ft. 1 in. (185.42 cm); Pain 10/10; 14:28 Body Mass Index 26.39 (90.72 kg, 185.42 cm) vg1 ED Course: 13:46 Patient arrived in ED. as 14:32 Triage completed. vg1 14:32 Arm band placed on. vg1 18:23 Baylee Kate FNP-C is [facility]. kb 18:23 Omar Duran MD is Attending Physician. kb 19:44 Hip Left 2 View XRAY In Process Unspecified. EDMS Administered Medications: 19:24 Drug: [place] (HYDROcodone-acetaminophen) (7.5 mg-325 mg) 1 tabs Route: PO; kb 19:25 Drug: Ketorolac 30 mg Route: IM; Site: right deltoid; kb Outcome: 20:42 Discharge ordered by . kb 20:50 Patient left the ED. kb Signatures: Dispatcher [employer] EDMS Baylee Kate FNP-C FNP-Sepideh Harris Victoria, RN RN vg1
[2021-10-27 20:55] VITALS: BP 125/89; TEMP 98.4; O2SAT 100
== END 2021-10-27 20:50 | disposition home or self-care (01) ==
LOC: ER 13:42
DX: M54.32 Sciatica, left side (principal)
CPT/HCPCS: 96372; 99283

== ENCOUNTER 2021-11-06 13:27 | Emergency (ER) | payer OTHER ==
--- NOTE | 2021-11-06 14:29 | ER ---
Nurse's Notes [facility] Name: Dimas Valera Age: 36 yrs Sex: Male : 1985 Arrival Date: 11/06/2021 Time: 13:29 Bed Waiting [facility] MD: Diagnosis: Low back pain Presentation: 11/06 14:02 Chief complaint: Patient states: Patient is hearing impaired but able to read lips, jg9 patient reports pain to the left back radiating down the leg and sometimes up to the neck Patient was prescribed prednisone 20 mg but he reports that he has not been able to get a refill due to not having the prescription. Coronavirus screen: Vaccine status: Patient reports receiving the 2nd dose of the covid vaccine. Patient reports receiving the 1st dose of the Covid vaccine. Ebola Screen: Patient negative for fever greater than or equal to 101.5 degrees Fahrenheit, and additional compatible Ebola Virus Disease symptoms Patient denies exposure to infectious person. Patient denies travel to an Ebola-affected area in the 21 days before illness onset. Initial Sepsis Screen: Does the patient meet any 2 criteria? No. Patient's initial sepsis screen is negative. Does the patient have a suspected source of infection? No. Patient's initial sepsis screen is negative. Risk Assessment: Do you want to hurt yourself or someone else? Patient reports no desire to harm self or others. Onset of symptoms is unknown. 14:02 Method Of Arrival: Wheelchair jg9 14:02 Acuity: BEBO 5 jg9 Triage Assessment: 14:06 General: Appears in no apparent distress. Behavior is calm, cooperative, appropriate jg9 for age. 14:34 Pain: Complains of pain in back. juarez Historical: - Allergies: 14:05 No Known Allergies; jg9 - Home Meds: 14:05 Etodolac Oral [Active]; jg9 - PMHx: 14:05 Bipolar disorder; Deaf; jg9 - Immunization history:: Client reports receiving the 2nd dose of the Covid vaccine, Client reports receiving the 1st dose of the Covid vaccine. - Social history:: Smoking status: Patient denies any tobacco usage or history of. Patient/guardian denies using alcohol, street drugs, The patient lives with family. - Family history:: not pertinent. Screenin:33 Abuse screen: Denies threats or abuse. Denies injuries from another. Nutritional juarez screening: No deficits noted. Tuberculosis screening: No symptoms or risk factors identified. Fall Risk None identified. Vital Signs: 14:02 BP 94 / 78; Pulse 99; Resp 17; Temp 98.3; Pulse Ox 97% on R/A; Weight 90.72 kg (R); jg9 Height 6 ft. 1 in. (185.42 cm) (R); 14:02 Body Mass Index 26.39 (90.72 kg, 185.42 cm) j9 ED Course: 13:29 Patient arrived in ED. as 14:03 Russell Aden PA is PHCP. valeria 14:03 Erinn Arora MD is Attending Physician. valeria 14:05 Triage completed. jg9 14:33 Arm band placed on right wrist. juarez 14:33 No provider procedures requiring assistance completed. Patient did not have IV access juarez during this emergency room visit. 14:34 Patient has correct armband on for positive identification. juarez Administered Medications: No medications were administered Outcome: 14:28 Discharge ordered by . tori 14:34 Discharged to home juarez 14:34 Condition: good 14:34 Discharge instructions given to patient, Prescriptions given X 1. 14:34 Patient left the ED. juarez Signatures: uRssell Aden PA PA Sepideh Rosenthal as Erinn Arora MD MD ma2 Gilmore, Jennifer, RN RN jg9 Alma Mcclellan RN RN juarez Corrections: (The following items were deleted from the chart) 14:08 14:02 Chief complaint: Patient states: Patient is hearing impaired but able to read jg9 lips, patient reports pain to the left back radiating down the leg and sometimes up to the neck jg9 14:08 14:02 Coronavirus screen: Vaccine status: Patient reports receiving the 2nd dose of the jg9 covid vaccine. Patient reports receiving the 1st dose of the Covid vaccine. jg9
--- NOTE | 2021-11-06 14:29 | EDPHYS ---
Physician Documentation [facility] Name: Dimas Valera Age: 36 yrs Sex: Male : 1985 Arrival Date: 11/06/2021 Time: 13:29 Bed Waiting Private MD: ED Physician Erinn Arora HPI: 11/06 14:25 This 36 yrs old Black Male presents to ER via Wheelchair with complaints of Medication ma2 Refill, Back Pain, Leg Pain. 14:25 The patient presents to the emergency department requesting refill(s) for:. ma2 14:27 Patient here for refill of prednisone 20 mg, for 5 days, which she takes for lower back ma2 pain, he has a chronic back pain, nothing changed no change in urinary symptoms such as continence or retention, there is no fever or saddle anesthesia or focal weakness.. Historical: - Allergies: 14:05 No Known Allergies; jg9 - Home Meds: 14:05 Etodolac Oral [Active]; jg9 - PMHx: 14:05 Bipolar disorder; Deaf; jg9 - Immunization history:: Client reports receiving the 2nd dose of the Covid vaccine, Client reports receiving the 1st dose of the Covid vaccine. - Social history:: Smoking status: Patient denies any tobacco usage or history of. Patient/guardian denies using alcohol, street drugs, The patient lives with family. - Family history:: not pertinent. ROS: 14:27 Constitutional: Negative for fever, chills, and weight loss, Eyes: Negative for injury, ma2 pain, redness, and discharge. 14:27 All other systems are negative. Exam: 14:27 Constitutional: This is a well developed, well nourished patient who is awake, alert, ma2 and in no acute distress. Head/Face: Normocephalic, atraumatic. Eyes: Pupils equal round and reactive to light, extra-ocular motions intact. Lids and lashes normal. Conjunctiva and sclera are non-icteric and not injected. Cornea within normal limits. Periorbital areas with no swelling, redness, or edema. ENT: Nares patent. No nasal discharge, no septal abnormalities noted. Tympanic membranes are normal and external auditory canals are clear. Oropharynx with no redness, swelling, or masses, exudates, or evidence of obstruction, uvula midline. Mucous membranes moist. Neck: Trachea midline, no thyromegaly or masses palpated, and no cervical lymphadenopathy. Supple, full range of motion without nuchal rigidity, or vertebral point tenderness. No Meningismus. Chest/axilla: Normal chest wall appearance and motion. Nontender with no deformity. No lesions are appreciated. Cardiovascular: Regular rate and rhythm with a normal S1 and S2. No gallops, murmurs, or rubs. Normal PMI, no JVD. No pulse deficits. Respiratory: Lungs have equal breath sounds bilaterally, clear to auscultation and percussion. No rales, rhonchi or wheezes noted. No increased work of breathing, no retractions or nasal flaring. Abdomen/GI: Soft, non-tender, with normal bowel sounds. No distension or tympany. No guarding or rebound. No evidence of tenderness throughout. Skin: Warm, dry with normal turgor. Normal color with no rashes, no lesions, and no evidence of cellulitis. MS/ Extremity: Pulses equal, no cyanosis. Neurovascular intact. Full, normal range of motion. Neuro: Awake and alert, GCS 15, oriented to person, place, time, and situation. Cranial nerves II-XII grossly intact. Motor strength 5/5 in all extremities. Sensory grossly intact. Cerebellar exam normal. Normal gait. Vital Signs: 14:02 BP 94 / 78; Pulse 99; Resp 17; Temp 98.3; Pulse Ox 97% on R/A; Weight 90.72 kg (R); jg9 Height 6 ft. 1 in. (185.42 cm) (R); 14:02 Body Mass Index 26.39 (90.72 kg, 185.42 cm) j9 MDM: 14:27 Data reviewed: vital signs, nurses notes. Counseling: I had a detailed discussion with ma2 the patient and/or guardian regarding: the historical points, exam findings, and any diagnostic results supporting the discharge/admit diagnosis, the presence of at least one elevated blood pressure reading (>120/80) during this emergency department visit, the need for outpatient follow up. Response to treatment: the patient's symptoms have markedly improved after treatment. 14:28 Patient medically screened. ma2 Administered Medications: No medications were administered Disposition Summary: 11/06/21 14:28 Discharge Ordered Location: Home ma2 Condition: Stable ma2 Diagnosis - Low back pain ma2 Followup: ma2 - With: Private Physician - When: Tomorrow - Reason: Continuance of care Discharge Instructions: - Discharge Summary Sheet ma2 - Acute Back Pain, Adult ma2 Forms: - Medication Reconciliation Form ma2 - Thank You Letter ma2 - Antibiotic Education ma2 - Prescription Opioid Use ma2 - Work release form eb Prescriptions: - Prednisone 20 mg Oral Tablet - take 1 tablet by ORAL route once daily for 5 days; 5 tablet; Refills: 0, ma2 Product Selection Permitted Signatures: Erinn Arora MD MD ma2 Bozena Oscar RN RN jg9
[2021-11-06 14:42] VITALS: BP 94/78; TEMP 98.3; O2SAT 97
== END 2021-11-06 14:34 | disposition home or self-care (01) ==
LOC: ER 13:27
DX: M54.50 Low back pain, unspecified (principal)
CPT/HCPCS: 99282

== ENCOUNTER 2022-04-10 22:02 | Emergency (ER) | payer OTHER ==
[2022-04-11 00:11] LABS: Urine Blood Trace-intact (Negative); Urine Glucose Negative (Negative); Urine Protein Trace (Negative); Urine Specific Gravity >=1.030 (1.005-1.030); Urine pH 5.5 (5.0-7.0)
[2022-04-11 00:23] LABS: Absolute Lymphocytes (CBC) 1.8 K/uL (0.7-4.9); Hematocrit 45.2 % (39.6-49.0); Lymphocytes % 29.3 % (15.3-44.8); MPV 9.6 fL (7.6-11.3); RBC Red Blood Cell Count 5.58 M/uL (4.33-5.43)
[2022-04-11 00:38] LABS: Potassium 3.9 mmol/L (3.5-5.1)
[2022-04-11] MEDS ORDERED: NA CHLORIDE 0.9% 1,000 ML ONE (02:24)
[2022-04-11 02:28] LABS: Troponin High Sensitivity 8.1 pg/mL (<58.9)
[2022-04-11 02:50] LABS: Urine Bacteria 20-50 /HPF (NONE SEEN)
[2022-04-11 02:51] LABS: Urine RBC NONE SEEN /HPF (NONE SEEN)
[2022-04-11] MEDS ORDERED: CEFTRIAXONE 1000 MG/VIAL ONE (03:04)
--- NOTE | 2022-04-11 05:47 | ER ---
Nurse's Notes [facility] Name: Dimas Valera Age: 36 yrs Sex: Male : 1985 Arrival Date: 04/10/2022 Time: 22:04 Bed 26 Private MD: Diagnosis: UTI/ Urinary tract infection, site not specified;Viral syndrome Presentation: 04/10 22:08 Chief complaint: Patient states: I feel like I am going to pass out. I passed out twice jb4 at home. I feel short of breath. I don'tknow if I am dehydrated or if it is my blood pressure. Coronavirus screen: At this time, the client does not indicate any symptoms associated with coronavirus-19. Ebola Screen: No symptoms or risks identified at this time. 22:08 Method Of Arrival: Ambulatory jb4 22:10 Initial Sepsis Screen: Does the patient meet any 2 criteria? No. Patient's initial jb4 sepsis screen is negative. Does the patient have a suspected source of infection? No. Patient's initial sepsis screen is negative. Risk Assessment: Do you want to hurt yourself or someone else? Patient reports no desire to harm self or others. Onset of symptoms was April 10, 2022. Transition of care: patient was not received from another setting of care. 22:10 Acuity: BEBO 3 jb4 Historical: - Allergies: 22:10 No Known Allergies; jb4 - Home Meds: 22:10 None [Active]; jb4 - PMHx: 22:10 Bipolar disorder; Deaf; jb4 - PSHx: 22:10 None; jb4 - Immunization history:: Adult Immunizations up to date. - Social history:: Smoking status: Patient denies any tobacco usage or history of. Patient uses alcohol, occasionally. Patient/guardian denies using street drugs. Screenin/13 06:04 Abuse screen: Denies threats or abuse. Nutritional screening: No deficits noted. bb Tuberculosis screening: No symptoms or risk factors identified. Fall Risk None identified. Assessment: 04/10 23:00 General: Appears in no apparent distress. comfortable, Behavior is calm, cooperative, jb4 appropriate for age. Pain: Denies pain. Neuro: Level of Consciousness is awake, alert, obeys commands, Oriented to person, place, time, situation. Cardiovascular: Patient's skin is warm and dry. Respiratory: Airway is patent Respiratory effort is even, unlabored, Respiratory pattern is regular, symmetrical. GI: No signs and/or symptoms were reported involving the gastrointestinal system. : No signs and/or symptoms were reported regarding the genitourinary system. EENT: No signs and/or symptoms were reported regarding the EENT system. Derm: Skin is intact, Skin is dry, Skin is normal, Skin temperature is warm. Musculoskeletal: Circulation, motion, and sensation intact. Range of motion: intact in all extremities. 04/11 00:00 Reassessment: Patient appears in no apparent distress at this time. Patient and/or jb4 family updated on plan of care and expected duration. Pain level reassessed. Patient is alert, oriented x 3, equal unlabored respirations, skin warm/dry/pink. 01:09 Reassessment: Patient appears in no apparent distress at this time. Patient and/or jb4 family updated on plan of care and expected duration. Pain level reassessed. Patient is alert, oriented x 3, equal unlabored respirations, skin warm/dry/pink. 03:20 Reassessment: Patient is alert, oriented x 3, equal unlabored respirations, skin bb warm/dry/pink. 05:10 Reassessment: pt sleeping, eyes closed, resp unlabored, IV site intact. bb 06:02 Reassessment: Patient is alert, oriented x 3, equal unlabored respirations, skin bb warm/dry/pink. pt verbalized understanding of and agrees to plan of care discharge instructions given pt ambulated with steady gait to exit. Vital Signs: 04/10 22:10 BP 126 / 88; Pulse 83; Resp 16; Temp 98.1(TE); Pulse Ox 100% ; Weight 91.04 kg (M); jb4 Height 6 ft. 1 in. (185.42 cm); 23:23 BP 130 / 92; Pulse 70; Resp 16; Temp 98.2(O); Pulse Ox 97% on R/A; mh5 04/11 00:06 BP 120 / 77 Supine; Pulse 56; Resp 18; Pulse Ox 98% ; mh5 00:10 BP 129 / 83 Sitting; Pulse 62; Resp 18; Pulse Ox 100% on R/A; mh5 00:12 BP 108 / 94 Standing; Pulse 72; Resp 17; Pulse Ox 98% on R/A; mh5 02:17 BP 122 / 87; Pulse 72; Resp 17; Temp 97.9(O); Pulse Ox 99% on R/A; mh5 03:20 BP 125 / 89; Pulse 63; Resp 16 S; Pulse Ox 100% on R/A; bb 05:18 BP 112 / 99; Pulse 57; Resp 16; Pulse Ox 99% on R/A; bb 06:04 BP 112 / 79; Pulse 67; Resp 16 S; Temp 97.3(O); Pulse Ox 97% on R/A; bb 04/10 22:10 Body Mass Index 26.48 (91.04 kg, 185.42 cm) jb4 ED Course: 04/10 22:04 Patient arrived in ED. bp1 22:10 Arm band placed on right wrist. jb4 22:17 Triage completed. jb4 23:24 Patient has correct armband on for positive identification. Bed in low position. Call [facility] light in reach. Side rails up X 1. Pulse ox on. NIBP on. 23:38 Myles Kyle MD is Attending Physician. 7 04/11 00:11 Flu Sent. mh5 00:11 COVID-19 SARS RT PCR (Document "Date of Onset" if Symptomatic) Sent. 5 00:11 Basic Metabolic Panel Sent. mh5 00:11 CBC with Diff Sent. 5 00:22 Initial lab(s) drawn, by ar, sent to lab. Urine collected: clean catch specimen, 5 cloudy, EKG done, by ED staff, reviewed by Myles Kyle MD. Inserted saline lock: 20 gauge in right antecubital area, using aseptic technique. Blood collected. 01:12 Miguelina Choi, RN is Primary Nurse. bb 02:21 Miguelina Choi, RN is Primary Nurse. bb 02:47 Chest Single View XRAY In Process Unspecified. EDMS 06:05 No provider procedures requiring assistance completed. IV discontinued, intact, bb bleeding controlled, No redness/swelling at site. Pressure dressing applied. Administered Medications: 02:22 Drug: NS 0.9% 1000 ml Route: IV; Rate: 1000 ml; Site: right antecubital; bb 03:38 Follow up: IV Status: Completed infusion; IV Intake: 950ml bb 03:10 Drug: Rocephin (cefTRIAXone) 1 grams Route: IV; Rate: per protocol; Site: right bb antecubital; 03:15 Follow up: IV Status: Completed infusion; IV Intake: 10ml bb Intake: 03:15 IV: 10ml; Total: 10ml. bb 03:38 IV: 950ml; Total: 960ml. bb Outcome: 05:46 Discharge ordered by mh7 06:05 Discharged to home ambulatory. bb 06:05 Condition: stable 06:05 Discharge instructions given to patient, Instructed on discharge instructions, follow up and referral plans. medication usage, Demonstrated understanding of instructions, follow-up care, medications, Prescriptions given X 3. 06:05 Patient left the ED. bb Signatures: Dispatcher [employer] EDMiguelina Rosas RN RN bb Bryson, James, RN RN Shahla Aguilar Brittany bp1 Holmes, Maurice, MD MD mh7
--- NOTE | 2022-04-11 05:47 | EDPHYS ---
Physician Documentation [facility] Name: Dimas Valera Age: 36 yrs Sex: Male : 1985 Arrival Date: 04/10/2022 Time: 22:04 Bed 26 Private MD: ED Physician Myles Kyle HPI: 04/11 00:00 This 36 yrs old Black Male presents to ER via Ambulatory with complaints of Breathing mh7 Difficulty. 05:07 The patient or guardian reports cough, that is intermittent, described as mild, with no mh7 sputum, difficulty breathing, Nausea. Onset: The symptoms/episode began/occurred yesterday. Severity of symptoms: At their worst the symptoms were moderate, yesterday, in the emergency department the symptoms have improved, moderately. Modifying factors: The symptoms are alleviated by nothing, the symptoms are aggravated by nothing. Associated signs and symptoms: Pertinent positives: chest pain, with cough, dysuria, Pertinent negatives: diarrhea, ear ache, fever, rhinorrhea, sore throat, vomiting. Historical: - Allergies: 04/10 22:10 No Known Allergies; jb4 - Home Meds: 22:10 None [Active]; jb4 - PMHx: 22:10 Bipolar disorder; Deaf; jb4 - PSHx: 22:10 None; jb4 - Immunization history:: Adult Immunizations up to date. - Social history:: Smoking status: Patient denies any tobacco usage or history of. Patient uses alcohol, occasionally. Patient/guardian denies using street drugs. ROS: 04/11 00:00 Constitutional: Negative for fever, chills, and weight loss, Eyes: Negative for injury, mh7 pain, redness, and discharge, ENT: Negative for injury, pain, and discharge, Neck: Negative for injury, pain, and swelling, Cardiovascular: Negative for chest pain, palpitations, and edema, Back: Negative for injury and pain. 00:00 MS/Extremity: Negative for injury and deformity, Skin: Negative for injury, rash, and mh7 discoloration, Neuro: Negative for headache, weakness, numbness, tingling, and seizure, Psych: Negative for depression, anxiety, suicide ideation, homicidal ideation, and hallucinations, Allergy/Immunology: Negative for hives, rash, and allergies, Endocrine: Negative for neck swelling, polydipsia, polyuria, polyphagia, and marked weight changes, Hematologic/Lymphatic: Negative for swollen nodes, abnormal bleeding, and unusual bruising. 00:00 Abdomen/GI: Negative for abdominal pain, vomiting, diarrhea, constipation, abdominal cramps, abdominal distension, anorexia, dysphagia, hematemesis, black/tarry stool, rectal pain, rectal bleeding, bowel incontinence, flatulence. Exam: 00:00 Constitutional: This is a well developed, well nourished patient who is awake, alert, mh7 and in no acute distress. Head/Face: Normocephalic, atraumatic. Eyes: Pupils equal round and reactive to light, extra-ocular motions intact. Lids and lashes normal. Conjunctiva and sclera are non-icteric and not injected. Cornea within normal limits. Periorbital areas with no swelling, redness, or edema. Neck: Trachea midline, no thyromegaly or masses palpated, and no cervical lymphadenopathy. Supple, full range of motion without nuchal rigidity, or vertebral point tenderness. No Meningismus. Chest/axilla: Normal chest wall appearance and motion. Nontender with no deformity. No lesions are appreciated. Cardiovascular: Regular rate and rhythm with a normal S1 and S2. No gallops, murmurs, or rubs. Normal PMI, no JVD. No pulse deficits. Respiratory: Lungs have equal breath sounds bilaterally, clear to auscultation and percussion. No rales, rhonchi or wheezes noted. No increased work of breathing, no retractions or nasal flaring. Abdomen/GI: Soft, non-tender, with normal bowel sounds. No distension or tympany. No guarding or rebound. No evidence of tenderness throughout. Back: No spinal tenderness. No costovertebral tenderness. Full range of motion. Skin: Warm, dry with normal turgor. Normal color with no rashes, no lesions, and no evidence of cellulitis. MS/ Extremity: Pulses equal, no cyanosis. Neurovascular intact. Full, normal range of motion. Neuro: Awake and alert, GCS 15, oriented to person, place, time, and situation. Cranial nerves II-XII grossly intact. Motor strength 5/5 in all extremities. Sensory grossly intact. Cerebellar exam normal. Normal gait. Psych: Awake, alert, with orientation to person, place and time. Behavior, mood, and affect are within normal limits. Vital Signs: 04/10 22:10 BP 126 / 88; Pulse 83; Resp 16; Temp 98.1(TE); Pulse Ox 100% ; Weight 91.04 kg (M); jb4 Height 6 ft. 1 in. (185.42 cm); 23:23 BP 130 / 92; Pulse 70; Resp 16; Temp 98.2(O); Pulse Ox 97% on R/A; mh5 04/11 00:06 BP 120 / 77 Supine; Pulse 56; Resp 18; Pulse Ox 98% ; mh5 00:10 BP 129 / 83 Sitting; Pulse 62; Resp 18; Pulse Ox 100% on R/A; mh5 00:12 BP 108 / 94 Standing; Pulse 72; Resp 17; Pulse Ox 98% on R/A; mh5 02:17 BP 122 / 87; Pulse 72; Resp 17; Temp 97.9(O); Pulse Ox 99% on R/A; mh5 03:20 BP 125 / 89; Pulse 63; Resp 16 S; Pulse Ox 100% on R/A; bb 05:18 BP 112 / 99; Pulse 57; Resp 16; Pulse Ox 99% on R/A; bb 06:04 BP 112 / 79; Pulse 67; Resp 16 S; Temp 97.3(O); Pulse Ox 97% on R/A; bb 04/10 22:10 Body Mass Index 26.48 (91.04 kg, 185.42 cm) jb4 MDM: 04/10 23:29 Patient medically screened. kb 04/11 05:43 Differential Diagnosis: Obstructed Airway Bronchitis Influenza Upper Respiratory mh7 Infection Viral Syndrome Other UTI. Data reviewed: vital signs, nurses notes, lab test result(s), cardiac enzymes, CBC, electrolytes, urinalysis, EKG, radiologic studies, plain films. Data interpreted: Pulse oximetry: on room air is 99 %. Interpretation: normal. Counseling: I had a detailed discussion with the patient and/or guardian regarding: the historical points, exam findings, and any diagnostic results supporting the discharge/admit diagnosis, lab results, radiology results, the need for outpatient follow up, to return to the emergency department if symptoms worsen or persist or if there are any questions or concerns that arise at home. Response to treatment: the patient's symptoms have resolved after treatment, the patient's blood pressure is in an acceptable range, mental status has returned to baseline, the patient no longer shows bradycardia, the patient is not short of breath, the patient is not tachycardic, the patient's pain is gone, the patient's temperature has normalized, the patient is now symptom free, patient is well hydrated. 04/10 23:29 Order name: CBC with Diff; Complete Time: 01:03 kb 04/10 23:29 Order name: Basic Metabolic Panel; Complete Time: 01:03 kb 04/10 23:30 Order name: COVID-19 SARS RT PCR (Document "Date of Onset" if Symptomatic); Complete kb Time: 01:03 04/10 23:30 Order name: Flu; Complete Time: 01:03 kb 04/11 00:11 Order name: Urine Dipstick-Ancillary; Complete Time: 01:03 EDMS 04/11 01:18 Order name: Urine Microscopic Only; Complete Time: 02:[address] [facility] 04/10 23:29 Order name: Orthostatics; Complete Time: 00:17 kb 04/10 23:29 Order name: EKG; Complete Time: 23:29 kb 04/11 01:56 Order name: Troponin High Sensitivity; Complete Time: 02:[address] [facility] 04/11 01:56 Order name: PROBNP; Complete Time: 02:[address] [facility] 04/11 01:56 Order name: Chest Single View XRAY [facility] 04/11 01:59 Order name: Urine Culture [facility] 04/10 23:29 Order name: EKG - Nurse/Tech; Complete Time: 00:23 kb 04/10 23:29 Order name: IV Start; Complete Time: 00:11 kb Administered Medications: 02:22 Drug: NS 0.9% 1000 ml Route: IV; Rate: 1000 ml; Site: right antecubital; bb 03:38 Follow up: IV Status: Completed infusion; IV Intake: 950ml bb 03:10 Drug: Rocephin (cefTRIAXone) 1 grams Route: IV; Rate: per protocol; Site: right bb antecubital; 03:15 Follow up: IV Status: Completed infusion; IV Intake: 10ml bb Disposition Summary: 04/11/22 05:46 Discharge Ordered Location: Home [facility] Problem: new [facility] Symptoms: have improved [facility] Condition: Stable [facility] Diagnosis - UTI/ Urinary tract infection, site not specified mh7 - Viral syndrome [facility] Followup: [facility] - With: Private Physician - When: 1 - 2 days - Reason: Worsening of condition, Recheck today's complaints, Continuance of care, Re-evaluation by your physician Discharge Instructions: - Discharge Summary Sheet [facility] - Urinary Tract Infection, Adult, [id number] [facility] - Viral Illness, Adult [facility] Forms: - Medication Reconciliation Form [facility] - Thank You Letter 7 - Antibiotic Education 7 - Prescription Opioid Use 7 - Work release form Prescriptions: - Cipro 500 mg Oral Tablet - take 1 tablet by ORAL route every 12 hours for 7 days; 14 tablet; Refills: 0, 7 Product Selection Permitted - albuterol sulfate 90 mcg/actuation Inhalation HFA aerosol inhaler - inhale 1 puff by INHALATION route every 6 hours As needed; 1 Inhaler; Refills: [facility] 0, Product Selection Permitted - Tessalon Perles 100 mg Oral Capsule - take 1 capsule by ORAL route every 8 hours As needed; 15 capsule; Refills: 0, 7 Product Selection Permitted Signatures: Dispatcher [employer] Baylee Mccoy, RETAIL PHARMACIST-C RETAIL PHARMACIST-Miguelina Dickson, RN RN bb Janes Holm RN RN jb4 Myles Kyle MD MD [facility]
[2022-04-11 06:41] VITALS: BP 112/79; TEMP 97.3; O2SAT 97
--- NOTE | 2022-04-11 13:33 | EKG ---
Test Date: 2022-04-11 Test Time: 00:27:12 Sheet Metal Former: WILLIAM MEASUREMENT RESULTS: Intervals: Rate: 58 TN: 144 QRSD: 88 QT: 410 QTc: 402 [place]: P: 61 TN: 144 QRS: 86 T: 31 INTERPRETIVE STATEMENTS: Sinus bradycardia Otherwise normal ECG Compared to ECG 08/14/2019 16:59:36 Sinus rhythm no longer present Right-axis deviation no longer present ST (T wave) deviation no longer present Electronically Signed On 04-11-22 13:32:15 CDT by Jerry Carlson
--- NOTE | 2022-04-11 15:52 | RAD REPORT ---
EXAM DESCRIPTION: RAD - Chest Single View - 04/11/2022 2:45 am CLINICAL HISTORY: 36 years, Male, DYSPNEA COMPARISON: None. FINDINGS: Single view of the chest was obtained portable. No prior films are available for compariso n. The cardiomediastinal silhouette demonstrate to be unremarkable. The heart is not enlarged. The thoracic aorta is unremarkable. Costophrenic angles are sharp. No areas of consolidation or lena s are seen. The rest of the soft tissue and bony structures demonstrate to be unremarkable. IMPRESSION: NO ACUTE CARDIOPULMONARY DISEASE SEEN. Electronically signed by: Krzysztof Vaughan MD 04/11/2022 3:21 AM CDT Due to temporary technical issues with the PACS/Fluency reporting system, reports are being signed by the in house radiologist without review as a courtesy to ensure prompt reporting. The interpreting r adiologist is fully responsible for the content of the report.
== END 2022-04-11 06:05 | disposition home or self-care (01) ==
LOC: ER 22:02
DX: B34.9 Viral infection, unspecified (principal); N39.0 Urinary tract infection, site not specified; H91.90 Unspecified hearing loss, unspecified ear; F31.9 Bipolar disorder, unspecified; Z20.822 Contact with and (suspected) exposure to COVID-19
CPT/HCPCS: 96361; 93005; 87088; 85025; 87086; 80048; 36415 ×2; 84484; 83880; 87804 ×2; 71045; 96374; 99284; U0003; J7030; 81003; 81015

== ENCOUNTER 2022-05-07 14:02 | Emergency (ER) | payer OTHER ==
[2022-05-07] MEDS ORDERED: TETANUS & DIPHTHERIA TOX,ADULT 0.5 ML VIAL ONE (14:33)
--- NOTE | 2022-05-07 15:01 | RAD REPORT ---
EXAM DESCRIPTION: RAD - Foot Left 3 View - 05/07/2022 2:52 pm CLINICAL HISTORY: Foot laceration FINDINGS: No fracture or dislocation is seen. A radiopaque foreign body is not seen
--- NOTE | 2022-05-07 15:20 | ER ---
Nurse's Notes [facility] Name: Dimas Valera Age: 36 yrs Sex: Male : 1985 Arrival Date: 05/07/2022 Time: 14:03 Bed 4 Private MD: Diagnosis: Laceration without foreign body, left foot Presentation: 05/07 14:13 Chief complaint: Chief complaint: Patient states: was cleaning up and dropped a glass iw on left foot, laceration noted bleeding controlled. 14:15 Coronavirus screen: At this time, the client does not indicate any symptoms associated iw with coronavirus-19. Ebola Screen: Patient negative for fever greater than or equal to 101.5 degrees Fahrenheit, and additional compatible Ebola Virus Disease symptoms Patient denies exposure to infectious person. Patient denies travel to an Ebola-affected area in the 21 days before illness onset. No symptoms or risks identified at this time. Complicating Factors: There are no complicating factors for this patient. Initial Sepsis Screen: Does the patient meet any 2 criteria? No. Patient's initial sepsis screen is negative. Does the patient have a suspected source of infection? No. Patient's initial sepsis screen is negative. Risk Assessment: Do you want to hurt yourself or someone else? Patient reports no desire to harm self or others. Onset of symptoms was May 07, 2022. 14:15 Method Of Arrival: Wheelchair iw 14:15 Acuity: BEBO 4 iw Triage Assessment: 14:20 General: Appears in no apparent distress. uncomfortable, Behavior is calm, cooperative, bp appropriate for age. Pain: Complains of pain in right foot. EENT: No deficits noted. Neuro: No deficits noted. Cardiovascular: No deficits noted. Respiratory: No deficits noted. GI: No signs and/or symptoms were reported involving the gastrointestinal system. : No signs and/or symptoms were reported regarding the genitourinary system. Derm: No signs and/or symptoms reported regarding the dermatologic system. Musculoskeletal: No deficits noted. Injury Description: Laceration sustained to right foot. Historical: - Allergies: 14:16 No Known Allergies; iw - PMHx: 14:16 Bipolar disorder; Deaf; iw - Immunization history:: Adult Immunizations up to date. - Social history:: Smoking status: Patient denies any tobacco usage or history of. Screenin:20 Abuse screen: Denies threats or abuse. Denies injuries from another. Nutritional bp screening: No deficits noted. Tuberculosis screening: No symptoms or risk factors identified. Fall Risk None identified. Assessment: 14:20 General: SEE TRIAGE NOTE. bp 15:54 Reassessment: PT D/C HOME AMBULATORY WITH FAMILY, DX WITH LACERATION. bp Vital Signs: 14:30 BP 129 / 91; Pulse 62; Resp 16; Temp 98.3; Pulse Ox 100% ; bp 15:53 BP 127 / 93; Pulse 57; Resp 16; Pulse Ox 100% ; bp ED Course: 14:03 Patient arrived in ED. am2 14:07 Oh Jalloh NP is PHCP. pm1 14:07 Oleksandr Watkins MD is Attending Physician. pm1 14:16 Triage completed. iw 14:16 Arm band placed on. iw 14:20 Patient has correct armband on for positive identification. Bed in low position. Call bp light in reach. Side rails up X2. 14:24 Dimas Henriquez, RN is Primary Nurse. bp 14:54 Foot Left 3 View XRAY In Process Unspecified. EDMS 15:54 No provider procedures requiring assistance completed. Patient did not have IV access bp during this emergency room visit. Administered Medications: 14:30 Drug: Tetanus-Diphtheria Toxoid Adult 0.5 ml {Test Facility Engineer: [facility]. Exp: bp 01/22/2024. Lot #: [id number]. } Route: IM; Site: right deltoid; 15:14 Follow up: Response: No adverse reaction bp Medication: 14:20 VIS not applicable for this client. bp Outcome: 15:20 Discharge ordered by . pm1 15:54 Discharged to home ambulatory, with family. bp 15:54 Condition: stable 15:54 Discharge instructions given to patient, Instructed on discharge instructions, follow up and referral plans. medication usage, wound care, Demonstrated understanding of instructions, follow-up care, medications, wound care, Prescriptions given X 1. 15:56 Patient left the ED. iw Signatures: Dispatcher [employer] EDMS Shelia Valladares RN RN Oh Jalloh, STEPHANIE FAMILY AND DIVORCE LEGAL ASSISTANT pm1 Sapna Palma am2 Dimas Henriquez, TAJ RN bp Corrections: (The following items were deleted from the chart) 14:16 14:13 Chief complaint: iw iw 15:56 14:30 BP 129 / 91; Pulse 62bpm; Resp 16bpm; Pulse Ox 100%; bp bp
--- NOTE | 2022-05-07 15:21 | EDPHYS ---
Physician Documentation [facility] Name: Dimas Valera Age: 36 yrs Sex: Male : 1985 Arrival Date: 05/07/2022 Time: 14:03 Bed 4 Private MD: ED Physician Oleksandr Watkins HPI: 05/07 14:13 This 36 yrs old Black Male presents to ER via Wheelchair with complaints of Laceration pm1 To Foot. 14:13 The patient has a laceration occurred at home, The injury was Patient accidentally pm1 dropped a glass cup on his left foot resulting in laceration to medial aspect of his left great toe. The laceration(s) is(are) located on the Medial aspect of MTP joint great toe. Onset: The symptoms/episode began/occurred just prior to arrival. Associated signs and symptoms: Pertinent negatives: suspected foreign body. The patient has not experienced similar symptoms in the past. The patient has not recently seen a physician. Historical: - Allergies: 14:16 No Known Allergies; iw - PMHx: 14:16 Bipolar disorder; Deaf; iw - Immunization history:: Adult Immunizations up to date. - Social history:: Smoking status: Patient denies any tobacco usage or history of. ROS: 14:13 Constitutional: Negative for fever, chills, and weight loss, Cardiovascular: Negative pm1 for chest pain, palpitations, and edema, Respiratory: Negative for shortness of breath, cough, wheezing, and pleuritic chest pain. 14:13 Neuro: Negative for headache, weakness, numbness, tingling, and seizure. 14:13 MS/extremity: Positive for laceration, of the medial aspect of MTP left great toe, Negative for decreased range of motion, deformity. 14:13 Skin: Positive for laceration(s), As noted in MS/extremity . 14:13 All other systems are negative. Exam: 14:13 Constitutional: This is a well developed, well nourished patient who is awake, alert, pm1 and in no acute distress. Head/Face: Normocephalic, atraumatic. 14:13 Cardiovascular: Exam negative for acute changes, Rate: normal, Rhythm: regular, Pulses: no pulse deficits are appreciated. 14:13 Respiratory: Exam negative for acute changes, respiratory distress, shortness of breath. 14:13 Musculoskeletal/extremity: Extremities: grossly normal except: noted in the medial aspect of left MTP: laceration, ROM: full active range of motion, in the left first toe. 14:13 Skin: Appearance: normal except for affected area, injury, laceration(s), the wound is approximately 0.5 cm(s), with a depth of 0.2 cm(s), of the medial aspect of left great toe MTP. 14:13 Neuro: Exam negative for acute changes, Orientation: is normal. Vital Signs: 14:30 BP 129 / 91; Pulse 62; Resp 16; Temp 98.3; Pulse Ox 100% ; bp 15:53 BP 127 / 93; Pulse 57; Resp 16; Pulse Ox 100% ; bp MDM: 14:07 Patient medically screened. pm1 15:19 Data reviewed: vital signs. Data interpreted: Pulse oximetry: on room air is 100 %. pm1 Interpretation: normal. Counseling: I had a detailed discussion with the patient and/or guardian regarding: the historical points, exam findings, and any diagnostic results supporting the discharge/admit diagnosis, radiology results, the need for outpatient follow up, a family practitioner, to return to the emergency department if symptoms worsen or persist or if there are any questions or concerns that arise at home. 15:21 ED course: Superficial laceration that is 5 mm long and 2 mm deep. It is not necessary pm1 to repair with sutures. Not actively bleeding. Will dress the wound and discharge home. 05/07 14:13 Order name: Foot Left 3 View XRAY; Complete Time: 15:10 pm1 05/07 15:30 Order name: Wound dressing; Complete Time: 15:53 pm1 05/07 15:30 Order name: Post-op shoe; Complete Time: 15:53 pm1 Administered Medications: 14:30 Drug: Tetanus-Diphtheria Toxoid Adult 0.5 ml {Shell Freezing Machine Operator: [employer]. Exp: bp 01/22/2024. Lot #: [id number]. } Route: IM; Site: right deltoid; 15:14 Follow up: Response: No adverse reaction bp Disposition: 18:03 Co-signature as Attending Physician, Oleksandr aWtkins MD. rn Disposition Summary: 05/07/22 15:20 Discharge Ordered Location: Home pm1 Problem: new pm1 Symptoms: have improved pm1 Condition: Stable pm1 Diagnosis - Laceration without foreign body, left foot pm1 Followup: pm1 - With: Private Physician - When: 2 - 3 days - Reason: Recheck today's complaints, Continuance of care, Re-evaluation by your physician Followup: pm1 - With: Emergency Department - When: As needed - Reason: Worsening of condition Discharge Instructions: - Discharge Summary Sheet pm1 - Laceration Care, Adult pm1 Forms: - Medication Reconciliation Form pm1 - Thank You Letter pm1 - Antibiotic Education pm1 - Prescription Opioid Use pm1 Prescriptions: - Cephalexin 500 mg Oral Capsule - take 1 capsule by ORAL route every 8 hours for 10 days; 30 capsule; Refills: 0, pm1 Product Selection Permitted Signatures: Dispatcher [employer] EDShelia Mckeon, RN RN Oleksandr Garcia MD MD rn Marinas, Patrick, STEPHANIE NET APPLICATION SUPPORT SPECIALIST pm1 Dimas Henriquez, RN RN bp
[2022-05-07 16:07] VITALS: TEMP 98.3; O2SAT 100
[2022-05-07 16:12] VITALS: BP 127/93
== END 2022-05-07 15:56 | disposition home or self-care (01) ==
LOC: ER 14:02
DX: S91.312A Laceration without foreign body, left foot, initial encounter (principal); Z23 Encounter for immunization
CPT/HCPCS: 90471; 90714; 99283

== ENCOUNTER 2023-04-02 15:32 | Emergency (ER) | payer OTHER ==
--- NOTE | 2023-04-02 16:04 | EDPHYS ---
Physician Documentation [facility] Name: Dimas Valera Age: 37 yrs Sex: Male : 1985 Arrival Date: 04/02/2023 Time: 15:32 Bed IW1 Private MD: ED Physician Roberto Green HPI: 04/02 16:08 This 37 yrs old Black Male presents to ER via Ambulatory with complaints of Mouth snw Problem. 16:08 The patient presents with pain, swelling. The problem is located in the left buccal snw mucosa. Onset: The symptoms/episode began/occurred suddenly, 3 day(s) ago, and became persistent. Duration: The symptoms are continuous. Associated signs and symptoms: The patient has no apparent associated signs or symptoms. Severity of symptoms: At their worst the symptoms were moderate, severe. The patient has not experienced similar symptoms in the past. It is unknown whether or not the patient has recently seen a physician. Historical: - Allergies: 15:55 No Known Allergies; vg1 - PMHx: 15:55 Bipolar disorder; Deaf; vg1 - Immunization history:: Client reports receiving the 2nd dose of the Covid vaccine. - Social history:: Smoking status: Patient denies any tobacco usage or history of. ROS: 16:10 Constitutional: Negative for fever, chills, and weight loss, Eyes: Negative for injury, snw pain, redness, and discharge, Neck: Negative for injury, pain, and swelling, Cardiovascular: Negative for chest pain, palpitations, and edema, Respiratory: Negative for shortness of breath, cough, wheezing, and pleuritic chest pain, Abdomen/GI: Negative for abdominal pain, nausea, vomiting, diarrhea, and constipation, Back: Negative for injury and pain, : Negative for injury, bleeding, discharge, and swelling, MS/Extremity: Negative for injury and deformity, Skin: Negative for injury, rash, and discoloration, Neuro: Negative for headache, weakness, numbness, tingling, and seizure, Psych: Negative for depression, anxiety, suicide ideation, homicidal ideation, and hallucinations. 16:10 ENT: Positive for pain in inside left cheek. Exam: 16:07 Constitutional: This is a well developed, well nourished patient who is awake, alert, snw and in no acute distress. Head/Face: Normocephalic, atraumatic. Eyes: Pupils equal round and reactive to light, extra-ocular motions intact. Lids and lashes normal. Conjunctiva and sclera are non-icteric and not injected. Cornea within normal limits. Periorbital areas with no swelling, redness, or edema. Neck: Trachea midline, no thyromegaly or masses palpated, and no cervical lymphadenopathy. Supple, full range of motion without nuchal rigidity, or vertebral point tenderness. No Meningismus. Chest/axilla: Normal chest wall appearance and motion. Nontender with no deformity. No lesions are appreciated. Cardiovascular: Regular rate and rhythm with a normal S1 and S2. No gallops, murmurs, or rubs. Normal PMI, no JVD. No pulse deficits. Respiratory: Lungs have equal breath sounds bilaterally, clear to auscultation and percussion. No rales, rhonchi or wheezes noted. No increased work of breathing, no retractions or nasal flaring. Abdomen/GI: Soft, non-tender, with normal bowel sounds. No distension or tympany. No guarding or rebound. No evidence of tenderness throughout. Back: No spinal tenderness. No costovertebral tenderness. Full range of motion. Skin: Warm, dry with normal turgor. Normal color with no rashes, no lesions, and no evidence of cellulitis. MS/ Extremity: Pulses equal, no cyanosis. Neurovascular intact. Full, normal range of motion. Neuro: Awake and alert, GCS 15, oriented to person, place, time, and situation. Cranial nerves II-XII grossly intact. Motor strength 5/5 in all extremities. Sensory grossly intact. Cerebellar exam normal. Normal gait. Psych: Awake, alert, with orientation to person, place and time. Behavior, mood, and affect are within normal limits. 16:07 ENT: Mouth: Oral mucosa: moist, buccal area around salivary gland with edema, tenderness to left side. Vital Signs: 15:53 BP 146 / 91; Pulse 80; Resp 16; Temp 98.2(TE); Pulse Ox 98% on R/A; Weight 90.72 kg; vg1 Height 6 ft. 1 in. ; Pain 7/10; 15:53 Body Mass Index 26.39 (90.72 kg, 185.42 cm) [facility] 15:53 Pain Scale: Adult vg1 MDM: 15:49 Patient medically screened. snw 16:09 Differential diagnosis: aphthous ulcers, gingivostomatitis, parotiditis. Data reviewed: snw vital signs, nurses notes. I considered the following discharge prescriptions or medication management in the emergency department Medications were administered in the Emergency Department. See MAR. Counseling: I had a detailed discussion with the patient and/or guardian regarding: the historical points, exam findings, and any diagnostic results supporting the discharge/admit diagnosis, the presence of at least one elevated blood pressure reading (>120/80) during this emergency department visit, the need for outpatient follow up, for definitive care, to return to the emergency department if symptoms worsen or persist or if there are any questions or concerns that arise at home. Response to treatment: There is no appreciated change of the patient's symptoms at this time. Special discussion: I have referred the patient to see his PCP for further evaluation of high blood pressure. Based on the history and exam findings, there is no indication for further emergent testing or inpatient evaluation. I discussed with the patient/guardian the need to see the ENT specialist for further evaluation of the symptoms. I discussed with the patient/guardian the need to see the primary care provider for further evaluation of the symptoms. Administered Medications: 16:26 Drug: Clindamycin PO 300 mg Route: PO; jl7 16:26 Follow up: Response: Medication administered at discharge. [facility] 16:27 Drug: HYDROcodone-acetaminophen PO 5 mg-325 mg 1 tabs Route: PO; jl7 16:27 Follow up: Response: Medication administered at discharge. jl7 Disposition Summary: 04/02/23 16:03 Discharge Ordered Location: Home snw Condition: Stable snw Diagnosis - Acute sialoadenitis snw Followup: snw - With: Emergency Department - When: As needed - Reason: Worsening of condition Followup: snw - With: Private Physician - When: 2 - 3 days - Reason: Recheck today's complaints, Continuance of care, Re-evaluation by your physician Discharge Instructions: - Discharge Summary Sheet snw - Parotitis snw Forms: - Medication Reconciliation Form snw - Thank You Letter snw - Antibiotic Education snw - Prescription Opioid Use snw - Work release form eb Prescriptions: - Clindamycin HCl 300 mg Oral Capsule - take 1 capsule by ORAL route every 8 hours for 10 days; 30 capsule; Refills: 0, snw Product Selection Permitted - Tramadol 50 mg Oral Tablet - take 1 tablet by ORAL route every 8 hours as needed; 12 tablet; Refills: 0, snw Product Selection Permitted Signatures: Cristina Oseguera FNP-C FNP-Csnw Leal, Jahala, RN RN jl7 Treasure Diaz RN RN vg1
--- NOTE | 2023-04-02 16:04 | ER ---
Nurse's Notes [facility] Name: Dimas Valera Age: 37 yrs Sex: Male : 1985 Arrival Date: 04/02/2023 Time: 15:32 Bed IW1 Private MD: Diagnosis: Acute sialoadenitis Presentation: 04/02 15:53 Chief complaint: Patient states: Left jaw pain for about 2-3 days, biting down hurts vg1 more, states pain radiates up towards head. Coronavirus screen: Vaccine status: Patient reports receiving the 2nd dose of the covid vaccine. Client denies travel out of the [place] in the last 14 days. Ebola Screen: Patient negative for fever greater than or equal to 101.5 degrees Fahrenheit, and additional compatible Ebola Virus Disease symptoms Patient denies exposure to infectious person. Patient denies travel to an Ebola-affected area in the 21 days before illness onset. Initial Sepsis Screen: Does the patient meet any 2 criteria? No. Patient's initial sepsis screen is negative. Does the patient have a suspected source of infection? No. Patient's initial sepsis screen is negative. Risk Assessment: Do you want to hurt yourself or someone else? Patient reports no desire to harm self or others. Onset of symptoms was March 30, 2023. 15:53 Method Of Arrival: Ambulatory [facility] 15:53 Acuity: BEBO 3 vg1 Triage Assessment: 15:55 General: Appears uncomfortable, Behavior is cooperative. Pain: Complains of pain in vg1 mouth Pain currently is 6 out of 10 on a pain scale. EENT: Oral mucosa is moist. swelling to left side. Historical: - Allergies: 15:55 No Known Allergies; vg1 - PMHx: 15:55 Bipolar disorder; Deaf; vg1 - Immunization history:: Client reports receiving the 2nd dose of the Covid vaccine. - Social history:: Smoking status: Patient denies any tobacco usage or history of. Vital Signs: 15:53 BP 146 / 91; Pulse 80; Resp 16; Temp 98.2(TE); Pulse Ox 98% on R/A; Weight 90.72 kg; vg1 Height 6 ft. 1 in. ; Pain 7/10; 15:53 Body Mass Index 26.39 (90.72 kg, 185.42 cm) vg1 15:53 Pain Scale: Adult vg1 ED Course: 15:37 Patient arrived in ED. mr 15:41 Cristina Oseguera FNP-C [facility] snw 15:41 Roberto Green MD is Attending Physician. snw 15:55 Triage completed. vg1 15:55 Arm band placed on. vg1 16:26 Katy Jernigan, RN is Primary Nurse. jl7 16:27 Patient has correct armband on for positive identification. jl7 16:27 No provider procedures requiring assistance completed. Patient did not have IV access jl7 during this emergency room visit. Administered Medications: 16:26 Drug: Clindamycin PO 300 mg Route: PO; jl7 16:26 Follow up: Response: Medication administered at discharge. jl7 16:27 Drug: HYDROcodone-acetaminophen PO 5 mg-325 mg 1 tabs Route: PO; jl7 16:27 Follow up: Response: Medication administered at discharge. jl7 Medication: 16:27 VIS not applicable for this client. jl7 Outcome: 16:03 Discharge ordered by . snw 16:27 Discharged to home ambulatory. jl7 16:27 Condition: stable 16:27 Discharge instructions given to patient, Instructed on discharge instructions, follow up and referral plans. medication usage, Demonstrated understanding of instructions, follow-up care, medications, Prescriptions given X 2. 16:28 Patient left the ED. jl7 Signatures: Cristina Oseguera FNP-C DOCUMENTATION MANAGER-Csnw Rica Santos mr Katy Jernigan, RN RN jl7 Treasure Diaz RN RN vg1
[2023-04-02] MEDS ORDERED: HYDROCODONE/APAP 5/325 MG TAB ONE (16:27)
[2023-04-02 16:48] VITALS: BP 146/91; TEMP 98.2; O2SAT 98
== END 2023-04-02 16:28 | disposition home or self-care (01) ==
LOC: ER 15:32
DX: K11.21 Acute sialoadenitis (principal)
CPT/HCPCS: 99283

== ENCOUNTER 2023-07-19 10:42 | Emergency (ER) | payer OTHER ==
[2023-07-19] MEDS ORDERED: IBUPROFEN 400 MG TAB ONE (11:27)
--- NOTE | 2023-07-19 12:43 | RAD REPORT ---
EXAM DESCRIPTION: RAD - Foot Right 3 View - 07/19/2023 11:47 am CLINICAL HISTORY: PAIN COMPARISON: No comparisons FINDINGS: Mild soft tissue swelling affects the fifth toe. No fracture or dislocation.
--- NOTE | 2023-07-19 13:21 | ER ---
Nurse's Notes [facility] Name: Dimas Valera Age: 38 yrs Sex: Male : 1985 Arrival Date: 07/19/2023 Time: 10:42 Bed 12 Private MD: Diagnosis: Contusion to right little toe Presentation: 07/19 11:02 Chief complaint: Patient states: R 5th toe pain after hitting it on furniture. ph Coronavirus screen: Vaccine status: Patient reports receiving the 2nd dose of the covid vaccine. Ebola Screen: No symptoms or risks identified at this time. Initial Sepsis Screen: Does the patient meet any 2 criteria? No. Patient's initial sepsis screen is negative. Initial Sepsis Screen: Does the patient have a suspected source of infection? No. Patient's initial sepsis screen is negative. Risk Assessment: Do you want to hurt yourself or someone else? Patient reports no desire to harm self or others. Onset of symptoms was July 19, 2023. 11:02 Method Of Arrival: Ambulatory 11:02 Acuity: BEBO 4 Triage Assessment: 13:33 General: Appears in no apparent distress. Injury Description: Bruise. ll1 Historical: - Allergies: 11:03 No Known Allergies; ph - PMHx: 11:03 Bipolar disorder; Deaf; ph - Immunization history:: Adult Immunizations unknown. - Social history:: Smoking status: unknown. - Family history:: not pertinent. Screenin:05 [facility] ED Fall Risk Assessment (Adult) Score/Fall Risk Level 0 - 2 = Low Risk ll1 Oriented to surroundings, Maintained a safe environment, Educated pt \T\ family on fall prevention, incl call for assistance when getting out of bed, Hourly rounding (assess needs \T\ fall precautionary measures) done. Abuse screen: Denies threats or abuse. Nutritional screening: No deficits noted. Tuberculosis screening: No symptoms or risk factors identified. Assessment: 11:04 General: Appears in no apparent distress. Behavior is calm, cooperative, appropriate ll1 for age. Pain: Complains of pain in right foot Quality of pain is described as aching. Musculoskeletal: Reports pain in right foot. 11:22 Reassessment: No changes from previously documented assessment. given crackers and ll1 drink. 13:32 Reassessment: No changes from previously documented assessment. Patient and/or family ll1 updated on plan of care and expected duration. Pain level reassessed. Patient is alert, oriented x 3, equal unlabored respirations, skin warm/dry/pink. Vital Signs: 11:02 BP 135 / 94; Pulse 73; Resp 18; Temp 97.2; Pulse Ox 98% ; ph 13:32 BP 138 / 95; Pulse 60; Resp 16; ll1 ED Course: 10:48 Patient arrived in ED. im 10:49 Danish Barney MD is Attending Physician. rt 11:02 Cira Currie RN is Primary Nurse. ph 11:03 Triage completed. ph 11:03 Arm band placed on Patient placed in an exam room. ph 11:05 Patient has correct armband on for positive identification. Bed in low position. Call ll1 light in reach. Cardiac monitoring not applicable on this patient. 11:49 Foot Right 3 View XRAY In Process Unspecified. EDMS 13:33 Provided Education on: n/a. ll1 13:33 No provider procedures requiring assistance completed. Patient did not have IV access ll1 during this emergency room visit. Administered Medications: 13:32 Not Given (Patient Refused): [id number] mg PO once ll1 Medication: 11:05 VIS not applicable for this client. ll1 Outcome: 13:20 Discharge ordered by . rt 13:33 Discharged to home ambulatory, ll1 13:33 Condition: stable 13:33 Discharge instructions given to patient, Instructed on discharge instructions, follow up and referral plans. Demonstrated understanding of instructions, follow-up care, 13:33 Patient left the ED. ll1 Signatures: Dispatcher [employer] EDWI Cira Currie RN RN Sruthi Brownlee RN RN [facility] Danish Barney MD MD rt Hanh Jenkins Corrections: (The following items were deleted from the chart) 13:32 11:22 Ibuprofen PO 800 mg PO ll1 ll1
--- NOTE | 2023-07-19 13:21 | EDPHYS ---
Physician Documentation [facility] Name: Dimas Valera Age: 38 yrs Sex: Male : 1985 Arrival Date: 07/19/2023 Time: 10:42 Bed 12 Private MD: ED Physician Danish Barney HPI: 07/19 11:17 This 38 yrs old Black Male presents to ER via Ambulatory with complaints of Foot Injury rt - right. 11:17 Patient presents to the ED with an injury to the right little toe. Patient actually rt kicked a piece of wood yesterday. Ports aching pain, radiating to the midfoot. Denies other injury, he complains. Pain is aching nature, mild in severity, no other aggravating alleviating factors.. Historical: - Allergies: 11:03 No Known Allergies; ph - PMHx: 11:03 Bipolar disorder; Deaf; ph - Immunization history:: Adult Immunizations unknown. - Social history:: Smoking status: unknown. - Family history:: not pertinent. ROS: 11:17 MS/extremity: Positive for contusion, pain, rt 11:17 Constitutional: Negative for fever, chills, and weight loss, Cardiovascular: Negative for chest pain, palpitations, and edema, Respiratory: Negative for shortness of breath, cough, wheezing, and pleuritic chest pain, Abdomen/GI: Negative for abdominal pain, nausea, vomiting, diarrhea, and constipation, Skin: Negative for injury, rash, and discoloration, Neuro: Negative for headache, weakness, numbness, tingling, and seizure, Psych: Negative for depression, anxiety, suicide ideation, homicidal ideation, and hallucinations, Exam: 11:17 Constitutional: This is a well developed, well nourished patient who is awake, alert, rt and in no acute distress. Head/Face: Normocephalic, atraumatic. Chest/axilla: Normal chest wall appearance and motion. Nontender with no deformity. No lesions are appreciated. Cardiovascular: Regular rate and rhythm with a normal S1 and S2. No gallops, murmurs, or rubs. Normal PMI, no JVD. No pulse deficits. Respiratory: Lungs have equal breath sounds bilaterally, clear to auscultation and percussion. No rales, rhonchi or wheezes noted. No increased work of breathing, no retractions or nasal flaring. Abdomen/GI: Soft, non-tender, with normal bowel sounds. No distension or tympany. No guarding or rebound. No evidence of tenderness throughout. Neuro: Awake and alert, GCS 15, oriented to person, place, time, and situation. Cranial nerves II-XII grossly intact. Motor strength 5/5 in all extremities. Sensory grossly intact. Cerebellar exam normal. Normal gait. Psych: Awake, alert, with orientation to person, place and time. Behavior, mood, and affect are within normal limits. 11:17 Musculoskeletal/extremity: Mild tenderness over distal right fifth metatarsal, no appreciable swelling, skin is intact, pulses, motor, sensation intact. Vital Signs: 11:02 BP 135 / 94; Pulse 73; Resp 18; Temp 97.2; Pulse Ox 98% ; ph 13:32 BP 138 / 95; Pulse 60; Resp 16; ll1 MDM: 11:03 Patient medically screened. rt 14:13 Differential diagnosis: fracture, sprain, contusion. Data reviewed: vital signs, nurses rt notes, radiologic studies. Independent interpretation of the following test(s) in the Emergency Department X-Ray: My interpretation is No fracture seen on interpretation of x-ray images. Counseling: I had a detailed discussion with the patient and/or guardian regarding the historical points, exam findings, and any diagnostic results supporting the discharge/admit diagnosis, radiology results, the need for outpatient follow up. 07/19 11:11 Order name: Foot Right 3 View XRAY; Complete Time: 13:09 rt Administered Medications: 13:32 Not Given (Patient Refused): [id number] mg PO once ll1 Disposition Summary: 07/19/23 13:20 Discharge Ordered Notes: Location: Home rt Problem: new rt Symptoms: are unchanged rt Condition: Stable rt Diagnosis - Contusion to right little toe rt Followup: rt - With: Private Physician - When: 5 - 6 days - Reason: Discharge Instructions: - Discharge Summary Sheet rt - Foot Contusion rt Forms: - Medication Reconciliation Form rt - Thank You Letter rt - Antibiotic Education rt - Prescription Opioid Use rt - Patient Portal Instructions rt - Leadership Thank You Letter rt Signatures: Dispatcher [employer] Cira Helms RN RN Sruthi Levine RN RN [facility] Danish Barney MD MD rt
[2023-07-19 14:31] VITALS: TEMP 97.2; O2SAT 98
[2023-07-19 14:33] VITALS: BP 138/95
== END 2023-07-19 13:33 | disposition home or self-care (01) ==
LOC: ER 10:42
DX: S90.121A Contusion of right lesser toe(s) without damage to nail, initial encounter (principal)

== ENCOUNTER 2024-01-30 14:52 | Emergency (ER) | payer OTHER ==
[2024-01-30] MEDS ORDERED: NA CHLORIDE 0.9% 1,000 ML ONE (15:17)
[2024-01-30] MEDS ORDERED: KETOROLAC 30 MG/ML INJ ONE (15:17)
[2024-01-30 15:38] LABS: Absolute Eosinophils 0.1 K/uL (0-0.5); Absolute Lymphocytes (CBC) 1.7 K/uL (0.7-4.9); Absolute Monocytes 0.4 K/uL (0.1-1.3); Absolute Neutrophil 2.8 K/uL (1.8-8.0); Basophils % 0.8 % (0-1.3); Hematocrit 42.1 % (39.6-49.0); Hemoglobin 13.7 g/dL (13.6-17.9); Lymphocytes % 33.5 % (15.3-44.8); MCH 26.8 pg (27.0-35.0); MCHC 32.6 g/dL (32.0-36.0); MCV 82.3 fL (80-100); Monocytes % 8.4 % (3.3-12.3); Neutrophils % 55.3 % (41.7-73.7); Platelets 205 thou/uL (152-406); RBC Red Blood Cell Count 5.11 M/uL (4.33-5.43); Red Cell Distribution Width 13.2 % (12.1-15.2)
[2024-01-30 15:46] LABS: Specific Gravity 1.025 (1.005-1.030); Sqamous Epithelial None Seen /HPF (None Seen); Urine Bacteria None Seen /HPF (<20); Urine Bilirubin NEGATIVE (Negative); Urine Blood Negative (Negative); Urine Clarity Clear (Clear); Urine Color Light-Yellow (Yellow); Urine Culture Reflex Order NOT NEEDED; Urine Glucose NEGATIVE (Negative); Urine Ketones NEGATIVE (Negative); Urine Microscopic Reflex YN ORDER UMIC; Urine Mucus Slight /HPF (None Seen); Urine Nitrite NEGATIVE (Negative); Urine Protein TRACE (Negative); Urine RBC <5 /HPF (None Seen); Urine Urobilinogen Normal (Normal)
[2024-01-30 15:54] LABS: Albumin 3.6 g/dL (3.4-5.0); Anion Gap 6.4 mEq/L (5.0-15.0); Bilirubin Total 1.2 mg/dL (0.2-1.0); Globulin 3.7 g/dL (2.3-3.5); Potassium 3.4 mEq/L (3.5-5.1); Protein, Total 7.3 g/dL (6.4-8.2)
--- NOTE | 2024-01-30 16:31 | RAD REPORT ---
EXAM DESCRIPTION: CT - Abdomen Pelvis Wo Contrast - 01/30/2024 4:22 pm CLINICAL HISTORY: Abdominal pain. FLANK PAIN COMPARISON: Abdomen Pelvis Wo Contrast dated 08/23/2021 TECHNIQUE: CT imaging of the abdomen and pelvis was performed without contrast. Solid organ, bowel a nd vascular assessment is limited due to lack of IV and oral contrast. All CT scans are performed using dose optimization technique as appropriate and may include automated exposure control or mA/KV adjustment according to patient size. FINDINGS: The lower lung carrizales are clear.Cholelithiasis. The liver, spleen, pancreas, adrenal glands and kidneys are within normal limits for a limited non-co ntrast examination. No bowel obstruction, free air, free fluid or abscess. Moderate stool is present throughout the colon . The appendix is normal. The osseous structures are within normal limits. IMPRESSION: Cholelithiasis. A limited non-contrast examination was performed as detailed.
--- NOTE | 2024-01-30 16:43 | ER ---
Nurse's Notes [facility] Name: Dimas Valera Age: 38 yrs Sex: Male : 1985 Arrival Date: 01/30/2024 Time: 14:52 Bed 7 Private MD: Diagnosis: Low back pain Presentation: 01/29 14:59 Chief complaint: Patient states: Right flank pain x4 days. Coronavirus screen: At this rs5 time, the client does not indicate any symptoms associated with coronavirus-19. Ebola Screen: No symptoms or risks identified at this time. Initial Sepsis Screen: Does the patient meet any 2 criteria? No. Patient's initial sepsis screen is negative. Does the patient have a suspected source of infection? No. Patient's initial sepsis screen is negative. Risk Assessment: Do you want to hurt yourself or someone else? Patient reports no desire to harm self or others. Onset of symptoms was February 23, 2024. 14:59 Method Of Arrival: Ambulatory rs5 14:59 Acuity: BEBO 3 rs5 Triage Assessment: 17:08 General: Behavior is calm, cooperative. ko1 Historical: - Allergies: 15:02 No Known Allergies; rs5 - PMHx: 15:02 Bipolar disorder; Deaf; rs5 - PSHx: 15:02 None; rs5 - Immunization history:: Adult Immunizations up to date. - Infectious Disease History:: Denies. - Social history:: Smoking status: Patient denies any tobacco usage or history of. Screenin:07 [facility] ED Fall Risk Assessment (Adult) History of falling in the last 3 months, ko1 including since admission No falls in past 3 months (0 pts) Confusion or Disorientation No (0 pts) Intoxicated or Sedated No (0 pts) Impaired Gait No (0 pts) Mobility Assist Device Used No (0 pt) Altered Elimination No (0 pt) Score/Fall Risk Level 0 - 2 = Low Risk Oriented to surroundings, Maintained a safe environment, Educated pt \T\ family on fall prevention, incl call for assistance when getting out of bed, Assessed \T\ reinforced patient's understanding of fall precautions, Provided non-skid footwear, Hourly rounding (assess needs \T\ fall precautionary measures) done, Used ambulatory aids as needed (educated on \T\ assisted with), Used gait belt as appropriate. Abuse screen: Denies threats or abuse. Denies injuries from another. Nutritional screening: No deficits noted. Tuberculosis screening: No symptoms or risk factors identified. Assessment: 16:07 General: Appears in no apparent distress. Pain: Complains of pain in anterior aspect of ko1 right lateral abdomen. Neuro: No deficits noted. Cardiovascular: No deficits noted. Respiratory: No deficits noted. GI: Reports lower abdominal pain. : No deficits noted. EENT: No deficits noted. Derm: No deficits noted. Musculoskeletal: No deficits noted. Vital Signs: 14:59 BP 129 / 94; Pulse 65; Resp 18; Temp 97.7(O); Pulse Ox 99% on R/A; rs5 16:07 BP 134 / 82; Pulse 56; Resp 15; Pulse Ox 100% ; ko1 16:57 BP 145 / 90; Pulse 52; Resp 15; Pulse Ox 99% ; ko1 ED Course: 14:54 Patient arrived in ED. mg5 14:56 Idalia Tapia PA-C is PHCP. sb4 14:56 Rinku Cool MD is Attending Physician. sb4 15:01 Triage completed. rs5 15:15 Shama Degroot, TAJ is Primary Nurse. ko1 15:30 Initial lab(s) drawn, by ne, sent to lab. Urine collected: clean catch specimen, clear. ko1 Inserted saline lock: 20 gauge in right antecubital area, using aseptic technique. Blood collected. 15:32 CBC with Diff Sent. ko1 15:32 CMP Sent. ko1 15:32 Lipase Sent. ko1 15:32 Urinalysis w/ reflexes Sent. ko1 16:07 Patient has correct armband on for positive identification. Bed in low position. Call ko1 light in reach. Side rails up X 1. Pulse ox on. NIBP on. Door closed. Noise minimized. Lights dimmed. Warm blanket given. Assisted to bathroom. 16:24 Abdomen In Process Unspecified. EDMS 16:57 No provider procedures requiring assistance completed. IV discontinued, intact, ko1 bleeding controlled, No redness/swelling at site. Pressure dressing applied. 16:57 Provided Education on: na. ko1 17:08 Arm band placed on right wrist. Patient placed in an exam room, on a stretcher, on ko1 pulse oximetry, Patient notified of wait time. Administered Medications: 15:31 Drug: NS 0.9% IV 1000 ml IV at 1 bolus Per protocol; 1000 mL bolus Route: IV; Rate: 1 ko1 bolus; Site: right antecubital; 15:45 Follow up: Response: No adverse reaction ko1 15:32 Drug: TORadol - Ketorolac IVP 15 mg IVP once Route: IVP; Site: right antecubital; ko1 15:45 Follow up: Response: No adverse reaction ko1 Medication: 16:07 VIS not applicable for this client. ko1 Outcome: 16:42 Discharge ordered by . sb4 16:57 Discharged to home ambulatory, ko1 16:57 Condition: stable 16:57 Discharge instructions given to patient, Instructed on discharge instructions, follow up and referral plans. medication usage, Demonstrated understanding of instructions, follow-up care, medications, Prescriptions given X 1, 17:08 Patient left the ED. ko1 Signatures: Dispatcher [employer] EDShama Patino RN RN ko1 Idalia Tapia, PA-C PA-C sb4 Roberto Craven RN RN rs5 Elaina Peetr mg5
--- NOTE | 2024-01-30 16:43 | EDPHYS ---
Physician Documentation [facility] Name: Dimas Valera Age: 38 yrs Sex: Male : 1985 Arrival Date: 01/30/2024 Time: 14:52 Bed 7 Private MD: ED Physician Rinku Cool HPI: 01/29 15:10 This 38 yrs old Black Male presents to ER via Ambulatory with complaints of Flank Pain. sb4 15:10 Patient reports right-sided flank pain x 4 days. He states that he picks up something sb4 heavy a few days ago and that may be the cause of it but he is unsure. He denies any urinary symptoms. States that he is also having intermittent dizzy spells. No nausea, vomiting, abdominal pain, fever, chills. Historical: - Allergies: 15:02 No Known Allergies; rs5 - PMHx: 15:02 Bipolar disorder; Deaf; rs5 - PSHx: 15:02 None; rs5 - Immunization history:: Adult Immunizations up to date. - Infectious Disease History:: Denies. - Social history:: Smoking status: Patient denies any tobacco usage or history of. ROS: 15:10 Constitutional: Negative for fever, chills, and weight loss, sb4 15:10 Back: Positive for flank pain, 15:10 Neuro: Positive for dizziness, 15:10 All other systems are negative, Exam: 15:10 Constitutional: This is a well developed, well nourished patient who is awake, alert, sb4 and in no acute distress. Head/Face: Normocephalic, atraumatic. Eyes: Extra-ocular motions intact. Periorbital areas with no swelling, redness, or edema. ENT: Mucous membranes moist. Cardiovascular: Regular rate and rhythm with a normal S1 and S2. Respiratory: Lungs have equal breath sounds bilaterally, clear to auscultation and percussion. No rales, rhonchi or wheezes noted. No increased work of breathing, no retractions or nasal flaring. Abdomen/GI: Soft, non-tender, no distension. Back: No spinal tenderness. No costovertebral tenderness. Full range of motion. Skin: Warm, dry with normal turgor. Normal color with no rashes, no lesions, and no evidence of cellulitis. MS/ Extremity: Pulses equal, no cyanosis. Neurovascular intact. Full, normal range of motion. Neuro: Awake and alert, GCS 15, oriented to person, place, time, and situation. Motor strength 5/5 in all extremities. Sensory grossly intact. Vital Signs: 14:59 BP 129 / 94; Pulse 65; Resp 18; Temp 97.7(O); Pulse Ox 99% on R/A; rs5 16:07 BP 134 / 82; Pulse 56; Resp 15; Pulse Ox 100% ; ko1 16:57 BP 145 / 90; Pulse 52; Resp 15; Pulse Ox 99% ; ko1 MDM: 15:01 Patient medically screened. sb4 16:42 Data reviewed: vital signs, nurses notes, lab test result(s), radiologic studies, and sb4 as a result, I will discharge patient. Counseling: I had a detailed discussion with the patient and/or guardian regarding the historical points, exam findings, and any diagnostic results supporting the discharge/admit diagnosis, lab results, radiology results, the need for outpatient follow up, for definitive care, to return to the emergency department if symptoms worsen or persist or if there are any questions or concerns that arise at home. 01/29 15:09 Order name: CBC with Diff; Complete Time: 15:55 sb4 01/29 15:09 Order name: CMP; Complete Time: 15:55 sb4 01/29 15:09 Order name: Lipase; Complete Time: 15:55 sb4 01/29 15:09 Order name: Urinalysis w/ reflexes; Complete Time: 15:55 sb4 01/29 16:19 Order name: Abdomen ; Complete Time: 16:33 EDMS 01/29 15:09 Order name: IV Saline Lock; Complete Time: 15:32 sb4 01/29 15:09 Order name: Labs collected and sent; Complete Time: 15:32 sb4 Administered Medications: 15:31 Drug: NS 0.9% IV 1000 ml IV at 1 bolus Per protocol; 1000 mL bolus Route: IV; Rate: 1 ko1 bolus; Site: right antecubital; 15:45 Follow up: Response: No adverse reaction ko1 15:32 Drug: TORadol - Ketorolac IVP 15 mg IVP once Route: IVP; Site: right antecubital; ko1 15:45 Follow up: Response: No adverse reaction ko1 Disposition Summary: 01/30/24 16:42 Discharge Ordered Notes: Location: Home sb4 Problem: an ongoing problem sb4 Symptoms: have improved sb4 Condition: Stable sb4 Diagnosis - Low back pain sb4 Followup: sb4 - With: Private Physician - When: As needed - Reason: Recheck today's complaints, Re-evaluation by your physician Discharge Instructions: - Discharge Summary Sheet sb4 - Acute Back Pain, Adult sb4 Forms: - Thank You Letter sb4 - Patient Portal Instructions sb4 - Leadership Thank You Letter sb4 Prescriptions: - ketorolac 10 mg Oral tablet - take 1 tablet ORAL route every 8 hours for 3 days as needed for pain; 12 sb4 tablet; Refills: 0, Product Selection Permitted Addendum: 02/01/2024 09:20 I was immediately available for consultation during this patient's visit. I did not e c2 personally see the patient or discuss the patient with the MICHAEL. . Signatures: Dispatcher [employer] Shama Amos RN RN ko1 Idalia Tapia PAKathleen PAKathleen sb4 Roberto Craven RN RN rs5 Rinku Cool MD MD ec2 Corrections: (The following items were deleted from the chart) 01/29 16:19 15:09 Abdomen Pelvis W Con+CT.RAD.BRZ ordered. ANA PEREZ
[2024-01-30 21:11] VITALS: BP 145/90; TEMP 97.7; O2SAT 99
== END 2024-01-30 17:08 | disposition home or self-care (01) ==
LOC: ER 14:52
DX: M54.50 Low back pain, unspecified (principal); R42 Dizziness and giddiness
CPT/HCPCS: 85025; 81001; 36415; 83690; 80053; 74176; 96374; 99284; J7030

== ENCOUNTER 2024-03-03 14:32 | Emergency (ER) | payer OTHER ==
[2024-03-03] MEDS ORDERED: NA CHLORIDE 0.9% 1,000 ML ONE (15:05)
[2024-03-03 15:40] LABS: Absolute Eosinophils 0.1 K/uL (0-0.5); Absolute Lymphocytes (CBC) 1.3 K/uL (0.7-4.9); Absolute Monocytes 0.4 K/uL (0.1-1.3); Absolute Neutrophil 2.1 K/uL (1.8-8.0); Basophils % 0.6 % (0-1.3); Eosinophils % 2.8 % (0-4.4); Hematocrit 42.3 % (39.6-49.0); Hemoglobin 13.6 g/dL (13.6-17.9); Lymphocytes % 32.5 % (15.3-44.8); MCHC 32.2 g/dL (32.0-36.0); MCV 83.8 fL (80-100); MPV 9.2 fL (7.6-11.3); Monocytes % 9.6 % (3.3-12.3); Neutrophils % 54.5 % (41.7-73.7); Nucleated Red Blood Cells % 0.1 % (0-0); Platelets 181 thou/uL (152-406); RBC Red Blood Cell Count 5.05 M/uL (4.33-5.43); Red Cell Distribution Width 14.3 % (12.1-15.2)
[2024-03-03 15:51] LABS: PT Prothrombin Time 13.2 SECONDS (9.5-12.5); PTT, Activated Partial Thromb 34.6 SECONDS (24.3-36.9); Protime INR 1.21
--- NOTE | 2024-03-03 16:00 | EDPHYS ---
Physician Documentation [facility] Name: Dimas Valera Age: 38 yrs Sex: Male : 1985 Arrival Date: 03/03/2024 Time: 14:32 Bed 17 Private MD: ED Physician Harsha Campos HPI: 03/03 15:51 This 38 yrs old Black Male presents to ER via Ambulatory with complaints of touched a artem psbl poisonous frog, breathing diffculty. 15:51 The patient presents with shortness of breath, ANXIOUS. Onset: The symptoms/episode artem began/occurred just prior to arrival. Associated signs and symptoms: Pertinent positives: shortness of breath. Possible causes: The patient has no known obvious cause for the symptoms, FROG. The patient has shortness of breath at rest, ANXIOUS. Duration: The symptoms are intermittent, with no pattern. The patient's shortness of breath has no apparent modifying factors. TOUCHED FROG, GOT ANXIOUS. At home the patient or guardian has treated the symptoms with nothing. Historical: - Allergies: 14:43 No Known Allergies; nj1 - PMHx: 14:43 Bipolar disorder; Deaf; nj1 - Immunization history:: Client reports receiving the 2nd dose of the Covid vaccine. - Infectious Disease History:: Denies. - Social history:: Smoking status: Patient denies any tobacco usage or history of. - Family history:: not pertinent. ROS: 15:51 Constitutional: Negative for fever, chills, and weight loss, Eyes: Negative for injury, artem pain, redness, and discharge, ENT: Negative for injury, pain, and discharge, Neck: Negative for injury, pain, and swelling, Cardiovascular: Negative for chest pain, palpitations, and edema, Abdomen/GI: Negative for abdominal pain, nausea, vomiting, diarrhea, and constipation, Back: Negative for injury and pain, : Negative for injury, bleeding, discharge, and swelling, MS/Extremity: Negative for injury and deformity, Skin: Negative for injury, rash, and discoloration, Neuro: Negative for headache, weakness, numbness, tingling, and seizure, Psych: Negative for depression, anxiety, suicide ideation, homicidal ideation, and hallucinations, Allergy/Immunology: Negative for hives, rash, and allergies, Endocrine: Negative for neck swelling, polydipsia, polyuria, polyphagia, and marked weight changes, 15:51 Respiratory: Positive for shortness of breath, at rest. ANXIOUS RESOLVED NOW, 15:51 MS/extremity: Negative for acute changes, injury or acute deformity, Exam: 15:51 Constitutional: This is a well developed, well nourished patient who is awake, alert, artem and in no acute distress. Head/Face: Normocephalic, atraumatic. Eyes: Pupils equal round and reactive to light, extra-ocular motions intact. Lids and lashes normal. Conjunctiva and sclera are non-icteric and not injected. Cornea within normal limits. Periorbital areas with no swelling, redness, or edema. ENT: Nares patent. No nasal discharge, no septal abnormalities noted. Tympanic membranes are normal and external auditory canals are clear. Oropharynx with no redness, swelling, or masses, exudates, or evidence of obstruction, uvula midline. Mucous membranes moist. Neck: Trachea midline, no thyromegaly or masses palpated, and no cervical lymphadenopathy. Supple, full range of motion without nuchal rigidity, or vertebral point tenderness. No Meningismus. Chest/axilla: Normal chest wall appearance and motion. Nontender with no deformity. No lesions are appreciated. Cardiovascular: Regular rate and rhythm with a normal S1 and S2. No gallops, murmurs, or rubs. Normal PMI, no JVD. No pulse deficits. Respiratory: Lungs have equal breath sounds bilaterally, clear to auscultation and percussion. No rales, rhonchi or wheezes noted. No increased work of breathing, no retractions or nasal flaring. Abdomen/GI: Soft, non-tender, with normal bowel sounds. No distension or tympany. No guarding or rebound. No evidence of tenderness throughout. Back: No spinal tenderness. No costovertebral tenderness. Full range of motion. Male : Normal genitalia with no discharge or lesions. Skin: Warm, dry with normal turgor. Normal color with no rashes, no lesions, and no evidence of cellulitis. MS/ Extremity: Pulses equal, no cyanosis. Neurovascular intact. Full, normal range of motion. Neuro: Awake and alert, GCS 15, oriented to person, place, time, and situation. Cranial nerves II-XII grossly intact. Motor strength 5/5 in all extremities. Sensory grossly intact. Cerebellar exam normal. Normal gait. Psych: Awake, alert, with orientation to person, place and time. Behavior, mood, and affect are within normal limits. 15:51 ECG was reviewed by the Attending Physician. 15:51 Musculoskeletal/extremity: ROM: no acute changes, Circulation is intact in all extremities. Sensation intact. Compartment Syndrome exam of affected extremity: is normal. Weight bearing: able to fully bear weight, without difficulty, DVT Exam: No signs of deep vein thrombosis. no pain, no swelling, no tenderness, negative Homans' sign noted on exam, no appreciated bluish discoloration, no erythema, no increased warmth, Vital Signs: 14:40 BP 138 / 91; Pulse 83; Resp 18; Temp 98.5(O); Pulse Ox 100% ; Weight 90.72 kg; Height 6 nj1 ft. 1 in. ; 16:07 BP 135 / 88; Pulse 77; Resp 18; Temp 98.4; Pulse Ox 99% ; rs5 14:40 Body Mass Index 26.39 (90.72 kg, 185.42 cm) nj1 MDM: 14:47 Patient medically screened. [facility] 15:56 Differential diagnosis: angioedema, bronchospasm, Anxiety Reaction foreign body or artem airway obstruction Status Asthmaticus Vasovagal Reactions pulmonary edema, Pulmonary Embolism Sepsis Unstable Angina. Antibiotic administration: Not indicated. Differential Diagnosis flu. Immunization status:. Data reviewed: vital signs, nurses notes, lab test result(s), EKG, radiologic studies, plain films. Consideration of Admission/Observation Escalation of care including admission/observation considered. I considered the following discharge prescriptions or medication management in the emergency department Medications were administered in the Emergency Department. See MAR. Independent interpretation of the following test(s) in the Emergency Department EKG: See my EKG interpretation above. Test considered but Not performed: CT: NO CT PE. Historians other than the Patient: Spouse/Significant Other: SO INFORMED. Counseling: I had a detailed discussion with the patient and/or guardian regarding the historical points, exam findings, and any diagnostic results supporting the discharge/admit diagnosis, lab results, radiology results, the need for outpatient follow up, for definitive care, a family practitioner. 03/03 14:48 Order name: Acetaminophen; Complete Time: 16:30 [facility] 03/03 14:48 Order name: Basic Metabolic Panel; Complete Time: 16:30 [facility] 03/03 14:48 Order name: CBC with Diff; Complete Time: 16:30 [facility] 03/03 14:48 Order name: ETOH Level; Complete Time: 16:30 [facility] 03/03 14:48 Order name: Hepatic Function; Complete Time: 16:30 [facility] 03/03 14:48 Order name: PT-INR; Complete Time: 16:30 [facility] 03/03 14:48 Order name: Ptt, Activated; Complete Time: 16:30 [facility] 03/03 14:48 Order name: Salicylate; Complete Time: 16:30 [facility] 03/03 14:48 Order name: Urinalysis w/ reflexes; Complete Time: 16:30 [facility] 03/03 14:48 Order name: Chest Pa And Lat (2 Views) XRAY; Complete Time: 16:30 [facility] 03/03 14:48 Order name: EKG; Complete Time: 14:48 [facility] 03/03 14:48 Order name: EKG - Nurse/Tech; Complete Time: 16:01 [facility] 03/03 14:48 Order name: IV Saline Lock; Complete Time: 15:23 [facility] 03/03 14:48 Order name: Labs collected and sent; Complete Time: 15:23 [facility] 03/03 14:48 Order name: Suicide Screening ([place]); Complete Time: 15:23 [facility] 03/03 14:48 Order name: Misc. Order: CALL POISON CONTROL; Complete Time: 15:23 [facility] EC:51 Rate is 65 beats/min. Rhythm is regular. QRS [place] is Normal. [place] interval is normal. QRS artem interval is normal. QT interval is normal. No Q waves. T waves are Normal. No ST changes noted. Clinical impression: Normal ECG and No evidence of ischemia. Interpreted by me. Reviewed by me. Administered Medications: 15:15 Drug: NS 0.9% IV 1000 ml IV at 1 bolus Per protocol; 1000 mL bolus Route: IV; Rate: 1 rs5 bolus; Site: right antecubital; 15:30 Follow up: Response: No adverse reaction rs5 Disposition Summary: 03/03/24 16:00 Discharge Ordered Notes: Location: Home artem Problem: new artem Symptoms: have improved artem Condition: Stable artem Diagnosis - Anxiety disorder, unspecified artem - Dyspnea - RESOLVED artem Followup: artem - With: Private Physician - When: 2 - 3 days - Reason: Recheck today's complaints, Continuance of care, Re-evaluation by your physician Discharge Instructions: - Discharge Summary Sheet artem - Panic Attack, [id number] artem - Supporting Someone With Anxiety artem - Managing Anxiety, Adult artem Forms: - Medication Reconciliation Form artem - Antibiotic Education artem - Prescription Opioid Use artem - Patient Portal Instructions artem - Leadership Thank You Letter [facility] Prescriptions: - Hydroxyzine HCl 25 mg Oral Tablet - take 1 tablet ORAL route every 6 hours As needed; 30 tablet; Refills: 0, artem Product Selection Permitted Signatures: Dispatcher [employer] EDMS Harsha Campos MD MD cha Sotelo, Ricky, RN RN rs5 Hanny Orosco RN RN nj1 Corrections: (The following items were deleted from the chart) 14:49 14:48 ACETAMINOPHEN+C.LAB.BRZ ordered. EDMS EDMS 14:49 14:48 BASIC METABOLIC PANEL+C.LAB.BRZ ordered. EDMS EDMS 14:49 14:48 CBC+H.LAB.BRZ ordered. EDMS EDMS 14:49 14:48 ETHANOL+C.LAB.BRZ ordered. EDMS EDMS 14:49 14:48 HEPATIC FUNCTION+C.LAB.BRZ ordered. EDMS EDMS 14:49 14:48 PROTIME (+INR)+COAG.LAB.BRZ ordered. EDMS EDMS 14:49 14:48 PTT, ACTIVATED+COAG.LAB.BRZ ordered. EDMS EDMS 14:49 14:48 SALICYLATE+C.LAB.BRZ ordered. EDMS EDMS 14:49 14:48 Urinalysis+U.LAB.BRZ ordered. EDMS EDMS 14:49 14:48 URINE DRUG SCREEN+UC.LAB.BRZ ordered. EDMS EDMS
--- NOTE | 2024-03-03 16:00 | ER ---
Nurse's Notes [facility] Name: Dimas Valera Age: 38 yrs Sex: Male : 1985 Arrival Date: 03/03/2024 Time: 14:32 Bed 17 Private MD: Diagnosis: Anxiety disorder, unspecified;Dyspnea-RESOLVED Presentation: 03/03 14:40 Chief complaint: Patient states: I pushed a frog away and started feeling something on nj1 my chest and my throat "like a burning sensation". Coronavirus screen: Vaccine status: Patient reports receiving the 2nd dose of the covid vaccine. Ebola Screen: Patient denies travel to an Ebola-affected area in the 21 days before illness onset. Initial Sepsis Screen: Does the patient meet any 2 criteria? No. Patient's initial sepsis screen is negative. Does the patient have a suspected source of infection? No. Patient's initial sepsis screen is negative. Risk Assessment: Do you want to hurt yourself or someone else? Patient reports no desire to harm self or others. Onset of symptoms was March 03, 2024. 14:40 Method Of Arrival: Ambulatory [facility] 14:40 Acuity: BEBO 3 [facility] 14:40 Note Cuprous Chloride Helper used, [id number], ASL. nj Historical: - Allergies: 14:43 No Known Allergies; nj1 - PMHx: 14:43 Bipolar disorder; Deaf; nj1 - Immunization history:: Client reports receiving the 2nd dose of the Covid vaccine. - Infectious Disease History:: Denies. - Social history:: Smoking status: Patient denies any tobacco usage or history of. - Family history:: not pertinent. Screenin:46 [facility] ED Fall Risk Assessment (Adult) History of falling in the last 3 months, rs5 including since admission No falls in past 3 months (0 pts) Confusion or Disorientation No (0 pts) Intoxicated or Sedated No (0 pts) Impaired Gait No (0 pts) Mobility Assist Device Used No (0 pt) Altered Elimination No (0 pt) Score/Fall Risk Level 0 - 2 = Low Risk Oriented to surroundings, Maintained a safe environment. Abuse screen: Denies threats or abuse. Nutritional screening: No deficits noted. Tuberculosis screening: No symptoms or risk factors identified. Assessment: 14:46 General: Appears in no apparent distress. comfortable, Behavior is calm, cooperative. rs5 Pain: Denies pain. Neuro: Level of Consciousness is awake, alert, obeys commands, Oriented to person, place, time, situation. Cardiovascular: Rhythm is regular. Respiratory: Airway is patent Respiratory effort is even, unlabored, Respiratory pattern is regular, symmetrical. GI: Abdomen is round non-distended, Abd is soft and non tender X 4 quads. : No signs and/or symptoms were reported regarding the genitourinary system. EENT: No signs and/or symptoms were reported regarding the EENT system. Derm: Skin is intact, Skin is pink, warm \\T\\ dry. Musculoskeletal: Range of motion: intact in all extremities. 14:47 Reassessment: To bedside with sign later data processor willian. Cuprous Chloride Helper states "earlier rs5 he touched a frog with the back of his hand about an hour ago. His throat started feeling sore after and he started having chest discomfort about 10 min after. his throat is no longer sore and he is no longer feeling chest discomfort. Denies pain". 14:50 Reassessment: Spoke to Sabrina from poison control per MD orders, . rs5 Sabrina states "there are no poisonous frogs in [place] and if his vitals are stable and he is asymptomatic our only recommendation is to monitor pt for one hour" provider notified. 16:06 Reassessment: No changes from previously documented assessment. rs5 Vital Signs: 14:40 BP 138 / 91; Pulse 83; Resp 18; Temp 98.5(O); Pulse Ox 100% ; Weight 90.72 kg; Height 6 nj1 ft. 1 in. ; 16:07 BP 135 / 88; Pulse 77; Resp 18; Temp 98.4; Pulse Ox 99% ; rs5 14:40 Body Mass Index 26.39 (90.72 kg, 185.42 cm) nj1 ED Course: 14:36 Patient arrived in ED. ra3 14:43 Triage completed. nj1 14:45 Arm band placed on right wrist. nj1 14:45 Patient has correct armband on for positive identification. Placed in gown. Bed in low rs5 position. Call light in reach. Side rails up X2. 14:47 Harsha Campos MD is Attending Physician. [place] 14:49 Roberto Craven RN is Primary Nurse. rs5 14:49 Inserted saline lock: 20 gauge in right antecubital area, using aseptic technique. rs5 Blood collected. 16:02 Chest Pa And Lat (2 Views) XRAY In Process Unspecified. EDMS 16:07 No provider procedures requiring assistance completed. rs5 16:40 IV discontinued, intact, bleeding controlled, No redness/swelling at site. Pressure rs5 dressing applied. Administered Medications: 15:15 Drug: NS 0.9% IV 1000 ml IV at 1 bolus Per protocol; 1000 mL bolus Route: IV; Rate: 1 rs5 bolus; Site: right antecubital; 15:30 Follow up: Response: No adverse reaction rs5 Medication: 16:06 VIS not applicable for this client. rs5 Outcome: 16:00 Discharge ordered by . artem 16:40 Discharged to home ambulatory, rs5 16:40 Condition: stable 16:40 Discharge instructions given to patient, family, Instructed on discharge instructions, follow up and referral plans. medication usage, Demonstrated understanding of instructions, follow-up care, medications, Prescriptions given X 1, 16:44 Patient left the ED. rs5 Signatures: Dispatcher [employer] EDHarsha Hutchison MD MD cha Sotelo, Ricky, RN RN rs5 Hanny Orosco RN RN nj1 Minerva Moran ra3 Corrections: (The following items were deleted from the chart) 18:42 16:44 Patient left the ED. rs5 rs5
--- NOTE | 2024-03-03 16:08 | RAD REPORT ---
EXAM DESCRIPTION: Zenaida Vidales And Lat (2 Views)03/03/2024 4:00 pm CLINICAL HISTORY: Shortness breath COMPARISON: 2021 FINDINGS: The lungs appear clear of acute infiltrate. The heart is normal size IMPRESSION: No acute abnormalities displayed
[2024-03-03 16:14] LABS: ALT/SGPT 33 U/L (16-61); AST/SGOT 20 U/L (15-37); Albumin 3.4 g/dL (3.4-5.0); Albumin/Globulin Ratio 0.9 (1.1-1.8); Alkaline Phosphatase 72 U/L (45-117); Anion Gap 5.6 mEq/L (5.0-15.0); BUN Blood Urea Nitrogen 14 mg/dL (7-18); Bicarbonate 30 mEq/L (21-32); Bilirubin Direct 0.2 mg/dL (0-0.2); Bilirubin Indirect, Calculated 0.5 mg/dL (0.2-0.8); Bilirubin Total 0.7 mg/dL (0.2-1.0); Globulin 3.6 g/dL (2.3-3.5); Glomerular Filtration Rate 57 ml/min (=/>90); Glucose Level 80 mg/dL (74-106); Potassium 3.6 mEq/L (3.5-5.1); Sodium Level 138 mEq/L (136-145)
[2024-03-03 16:28] LABS: Specific Gravity 1.013 (1.005-1.030); Urine Bilirubin NEGATIVE (Negative); Urine Blood Negative (Negative); Urine Clarity Clear (Clear); Urine Color Colorless (Yellow); Urine Glucose NEGATIVE (Negative); Urine Ketones NEGATIVE (Negative); Urine Microscopic Reflex YN NO UMIC; Urine Nitrite NEGATIVE (Negative); Urine Protein NEGATIVE (Negative); Urine Urobilinogen Normal (Normal)
[2024-03-03 17:00] VITALS: BP 135/88; TEMP 98.4; O2SAT 99
--- NOTE | 2024-03-04 14:40 | EKG ---
Test Date: 2024-03-03 Test Time: 15:31:49 Cloud Consultant: DC MEASUREMENT RESULTS: Intervals: Rate: 65 VT: 138 QRSD: 78 QT: 378 QTc: 393 [place]: P: 70 VT: 138 QRS: 105 T: 31 INTERPRETIVE STATEMENTS: Normal sinus rhythm Normal ECG Compared to ECG 04/11/2022 00:27:12 Sinus bradycardia no longer present Electronically Signed On 03-04-24 14:37:48 CDT by Jerry Carlson
== END 2024-03-03 16:44 | disposition home or self-care (01) ==
LOC: ER 14:32
DX: F41.9 Anxiety disorder, unspecified (principal)
CPT/HCPCS: 93005; 85025; 80048; 36415; 85610; 80076; 85730; 81003; 71046; 99284; 80143; 80179; 82077; J7030